=== PATIENT | female | born 2000 | race Caucasian/White ===

== ENCOUNTER 2020-12-18 11:38 | Day surgery (SDC) | payer OTHER ==
[~2020-12-18] VITALS: Ht 175.3 cm; Wt 103.9 kg
[2020-12-18] MEDS ORDERED: DOXYCYCLINE HYCLATE 100MG TABLET PO ONE (12:20)
[2020-12-18] MEDS ORDERED: ACETAMINOPHEN *IV* 1,000 MG IV ONE ×2 (12:20)
[2020-12-18] MEDS ORDERED: TYLE650T38 PO (12:22)
[2020-12-18] MEDS ORDERED: LIDOCAINE 2% 100MG/5ML SDV (FOR ANES.) As Ordered ONE (12:36)
[2020-12-18] MEDS ORDERED: propofoL 200 MG/20 ML VIAL As Ordered ONE (12:36)
[2020-12-18] MEDS ORDERED: MIDAZOLAM INJ 2MG/2ML VIAL (J2250 PER 1MG) As Ordered ONE (12:36)
[2020-12-18] MEDS ORDERED: fentaNYL 100 MCG/2 ML INJECTION (J3010) As Ordered ONE (12:36)
[2020-12-18] MEDS ORDERED: LR 1,000 ML IV ONE (12:40)
[2020-12-18] MEDS ORDERED: LIDOCAINE 1% SDV 30ML VIAL As Ordered ONE (12:41)
[2020-12-18 12:44] LABS: HEMATOCRIT 41.6 % (36.0-47.0); HEMOGLOBIN 14.5 g/dl (12.0-15.5); MEAN CORPUSCULAR HEMOGLOBIN 30.5 pg (27.0-33.0); MEAN CORPUSCULAR HGB CONC 34.9 g/dl (32.0-36.5); MEAN CORPUSCULAR VOLUME 87.6 fl (80.0-96.0); PLATELET COUNT, AUTOMATED 548 10^3/uL (150-450); RED BLOOD COUNT 4.75 10^6/uL (4.00-5.40); WHITE BLOOD COUNT 13.3 10^3/uL (4.0-10.0)
[2020-12-18] MEDS ORDERED: METHYLERGONOVINE MALEATE 0.2 MG/ML VIAL (J2210) As Ordered ONE (12:51)
[2020-12-18] MEDS ORDERED: SCOPOLAMINE 1MG TRANSDERMAL PATCH TOP ONE (13:00)
[2020-12-18] MEDS ORDERED: ACETAMINOPHEN 1000MG 100ML IV BTL (OFIRMEV) (J0131 PER 10MG) As Ordered ONE (13:02)
[2020-12-18] MEDS ORDERED: dexameTHASONE 4 MG/ML 1ML VIAL (J1100 PER 1MG) As Ordered ONE (13:02)
[2020-12-18] MEDS ORDERED: KETOROLAC 60MG 2ML VIAL As Ordered ONE (13:02)
[2020-12-18] MEDS ORDERED: ONDANSETRON 4MG/2ML VIAL As Ordered ONE ×2 (13:02→14:03)
[2020-12-18] MEDS ORDERED: SILVER NITRATE APPLICATOR As Ordered ONE (13:24)
--- NOTE | 2020-12-18 13:42 | ROOPDOC ---
[facility] Report Of Operation Report of Operation DATE OF PROCEDURE: 12/18/20 PREPROCEDURE DIAGNOSES: [early loss]. POSTPROCEDURE DIAGNOSES: [early loss]. PROCEDURE PERFORMED: [suction dilation & curettage]. SURGEON: [Anjel Vega DO ANESTHESIA: [MAC]. ESTIMATED BLOOD LOSS: Approximately [200] mL. COMPLICATIONS: [none]. REMARKS: [none]. FINDINGS: [Exam under anethesia: anteverted mobile uterus, Ultrasound gestational sac visible, no cardiac activity. SUction d&c performed without complication. Postprocedure ultrasound revealed thin endometrial s tripe.] SPECIMENS REMOVED: [products of conception] DESCRIPTION OF PROCEDURE: After obtaining informed consent, the patient was brought to the operating suite and prepped/draped in the usual manner. A timeout was called and the patient name, date of and procedure to be performed were verified. A sterile speculum was placed vaginally. A tenaculum was affixed to the anterior lip of the cervix. 10mL of 1% lidocaine was injected as a paracervical block. The cervix was serially dilated to 13Fr. The 7mm suction canulla was introduced and three passes were performed productive of tissue. This was followed by sharp curettage with good cry noted in 360 degrees. Ultrasound verification of the removal of the gestational sac. Then one additional suction curettage pass. The tenaculum was removed and hemostasis was obtained with pressure and silver nitrate. All instruments were removed from the vagina. The patient was taken to the recovery room in good condition. DO OTTO Katz BRADLEY J. DO Dec 18, 2020 13:42
--- NOTE | 2020-12-18 13:43 | POST-OPPD ---
Postoperative Procedure Note Date Of Procedure: Dec 18, 2020 DATE OF PROCEDURE: 12/18/20 PREPROCEDURE DIAGNOSES: [early loss]. POSTPROCEDURE DIAGNOSES: [early loss]. PROCEDURE PERFORMED: [suction dilation & curettage]. SURGEON: [Ghulam Eric]DO ANESTHESIA: [MAC]. ESTIMATED BLOOD LOSS: Approximately [200] mL. COMPLICATIONS: [none]. REMARKS: [none]. FINDINGS: [Exam under anethesia: anteverted mobile uterus, Ultrasound gestational sac visible, no cardiac activity. SUction d&c performed without complication. Postprocedure ultrasound revealed thin endometrial stripe.] SPECIMENS REMOVED: [products of conception] GHULAM ERIC DO Dec 18, 2020 13:43
[2020-12-18] MEDS ORDERED: LR 1,000 ML IV SCH (14:10)
[2020-12-18] MEDS ORDERED: fentaNYL 100 MCG/2 ML INJECTION (J3010) IV PRN (14:10)
[2020-12-18] MEDS ORDERED: ONDANSETRON 4MG/2ML VIAL IV PRN (14:10)
[2020-12-18] MEDS ORDERED: METOCLOPRAMIDE INJ 10MG/2ML VIAL (J2765 PER 1) IV PRN (14:10)
[2020-12-18] MEDS ORDERED: oxyCODONE 5MG TAB PO PRN (14:10)
[2020-12-18 16:25] VITALS: BP 115/63
== END 2020-12-18 16:52 | disposition home or self-care (01) ==
LOC: M SDC 11:38 → EDSTATUS 14:54 → M SDC 16:52
PROVIDERS: ATTEND Obstetrics & Gynecology
DX: O02.1 Missed abortion (principal); Z88.1 Allergy status to other antibiotic agents
CPT/HCPCS: 36415; 59820; 85027; 86850; 86900; 86901; 88305; J0131; J1100; J1885; J2250; J2405; J3010; U0002

== ENCOUNTER → 2021-08-17 | Outpatient (CLI) | payer OTHER ==
[~2021-08-17] MED LIST: TYLE650T38 PO
[2021-08-17 17:38] LABS: BASO # 0.1 10^3/uL (0.0-0.2); BASO % 0.5 % (0.0-1.0); EOS # 0.1 10^3/uL (0.0-0.5); EOS % 0.6 % (0.0-3.0); HEMATOCRIT 37.9 % (36.0-47.0); HEMOGLOBIN 13.1 g/dl (12.0-15.5); LYMPH % 20.9 % (24.0-44.0); MEAN CORPUSCULAR HEMOGLOBIN 31.1 pg (27.0-33.0); MEAN CORPUSCULAR HGB CONC 34.6 g/dl (32.0-36.5); MONO # 1.5 10^3/uL (0.0-0.8); MONO % 10.3 % (2.0-8.0); NEUTROPHILS # 9.5 10^3/uL (1.5-8.5); NEUTROPHILS % 67.4 % (36.0-66.0); PLATELET COUNT, AUTOMATED 471 10^3/uL (150-450); RED BLOOD COUNT 4.21 10^6/uL (4.00-5.40); WHITE BLOOD COUNT 14.2 10^3/uL (4.0-10.0)
[2021-08-17 17:49] LABS: INR 0.88; PROTHROMBIN TIME 12.3 SECONDS (12.7-14.5)
[2021-08-17 17:50] LABS: PARTIAL THROMBOPLASTIN TIME 26.6 SECONDS (25.9-37.0)
[2021-08-17 17:53] LABS: BILIRUBIN,DIRECT 0.1 MG/DL (0.0-0.2); BILIRUBIN,TOTAL 0.5 MG/DL (0.2-1.0); FERRITIN 16 NG/ML (8-252); IMMUNOGLOBULIN G 896 MG/DL (681-1648); IRON (FE) 111 UG/DL (50-170); PERCENT SATURATION 31.5 % (13.2-45.0); TOTAL IRON BINDING CAPACITY 352 UG/DL (250-450)
[2021-08-17 18:01] LABS: FOLATE > 24.0 NG/ML (>5.4); VITAMIN B12 LEVEL 368 PG/ML (247-911)
== END ==
LOC: M PLALAB 15:59
PROVIDERS: ATTEND Internal Medicine Hematology
DX: D58.0 Hereditary spherocytosis (principal)

== ENCOUNTER → 2021-09-15 | Outpatient (CLI) | payer OTHER | LOC: M LAB 14:16 | PROVIDERS: ATTEND Obstetrics & Gynecology | DX: O99.210 Obesity complicating pregnancy, unspecified trimester (principal) ==

== ENCOUNTER 2021-09-23 18:15 | Outpatient (CLI) | payer OTHER ==
[~2021-09-23] VITALS: Ht 175.3 cm; Wt 105.1 kg
[2021-09-23 18:30] VITALS: BP 129/78
[2021-09-23 18:40] VITALS: BP 129/78
[2021-09-23] MEDS ORDERED: PNVTAB4 PO (18:46)
[2021-09-23] MEDS ORDERED: MAGN200T PO (18:47)
[2021-09-23] MEDS ORDERED: ASPI81CH33 PO (18:49)
[2021-09-23] MEDS ORDERED: ACETAMINOPHEN 325 MG TAB PO ONE (19:00)
[2021-09-23] MEDS ORDERED: METOCLOPRAMIDE 10MG TAB PO ONE (19:45)
[2021-09-23] MEDS ORDERED: diphenhydrAMINE 25MG CAP PO ONE (19:45)
[2021-09-23 20:31] LABS: HEMATOCRIT 35.4 % (36.0-47.0); HEMOGLOBIN 12.2 g/dl (12.0-15.5); MEAN CORPUSCULAR HEMOGLOBIN 31.5 pg (27.0-33.0); MEAN CORPUSCULAR HGB CONC 34.5 g/dl (32.0-36.5); MEAN CORPUSCULAR VOLUME 91.5 fl (80.0-96.0); PLATELET COUNT, AUTOMATED 492 10^3/uL (150-450); RED BLOOD COUNT 3.87 10^6/uL (4.00-5.40); WHITE BLOOD COUNT 14.9 10^3/uL (4.0-10.0)
[2021-09-23 21:29] VITALS: BP 131/60
[2021-09-23] MEDS ORDERED: IBUPROFEN 800 MG TAB PO ONE (21:35)
== END 2021-09-23 22:30 | disposition home or self-care (01) ==
LOC: M LDO 18:15
PROVIDERS: ATTEND Obstetrics & Gynecology
DX: O26.892 Other specified pregnancy related conditions, second trimester (principal); Z3A.23 23 weeks gestation of pregnancy; R51.9 Headache, unspecified; O99.112 Other diseases of the blood and blood-forming organs and certain disorders involving the immune mechanism complicating pregnancy, second trimester; D72.829 Elevated white blood cell count, unspecified; Z87.59 Personal history of other complications of pregnancy, childbirth and the puerperium; O23.42 Unspecified infection of urinary tract in pregnancy, second trimester; N39.0 Urinary tract infection, site not specified; Z88.1 Allergy status to other antibiotic agents
CPT/HCPCS: 36415; 59025; 81001; 85027; 87086; G0378; G0463

== ENCOUNTER 2021-12-26 17:17 | Outpatient (CLI) | payer OTHER ==
[~2021-12-26] VITALS: Ht 53.3 cm; Wt 111.9 kg
[~2021-12-26 17:17] MED LIST changes: +ASPI81CH33 PO; +MAGN200T PO; +PNVTAB4 PO
[2021-12-26 17:56] VITALS: BP 152/65
[2021-12-26] MEDS ORDERED: TUMS500C PO (17:59)
[2021-12-26] MEDS ORDERED: HOME MED LIST COMPLETE! XX SCH (18:00)
[2021-12-26 18:19] LABS: HEMATOCRIT 34.4 % (36.0-47.0); HEMOGLOBIN 11.7 g/dl (12.0-15.5); MEAN CORPUSCULAR HEMOGLOBIN 30.2 pg (27.0-33.0); MEAN CORPUSCULAR VOLUME 88.7 fl (80.0-96.0); PLATELET COUNT, AUTOMATED 499 10^3/uL (150-450); RED BLOOD COUNT 3.88 10^6/uL (4.00-5.40); WHITE BLOOD COUNT 14.2 10^3/uL (4.0-10.0)
[2021-12-26 18:34] VITALS: BP 90/53
[2021-12-26 18:48] LABS: CREATININE,RANDOM URINE 64.5 MG/DL; TOTAL PROTEIN,RANDOM URINE 9.1 MG/DL (0.0-12.0)
[2021-12-26 18:50] LABS: ALBUMIN 2.7 GM/DL (3.2-5.2); ALT/SGPT 13 U/L (12-78); BILIRUBIN,TOTAL 0.4 MG/DL (0.2-1.0); BLOOD UREA NITROGEN 7 MG/DL (7-18); CALCIUM LEVEL 9.1 MG/DL (8.5-10.1); CARBON DIOXIDE LEVEL 21 MEQ/L (21-32); CHLORIDE LEVEL 108 MEQ/L (98-107); CREATININE FOR GFR 0.65 MG/DL (0.55-1.30); GLOMERULAR FILTRATION RATE > 60.0 (>60); GLUCOSE, FASTING 142 MG/DL (70-100); LDH LACTATE DEHYDROGENASE 120 U/L (84-246); SODIUM LEVEL 138 MEQ/L (136-145); TOTAL PROTEIN 6.2 GM/DL (6.4-8.2)
[2021-12-26 19:11] VITALS: BP 106/59
[2021-12-26 19:31] VITALS: BP 128/76
[2021-12-26] MEDS ORDERED: diphenhydrAMINE 25MG CAP PO ONE (20:00)
[2021-12-26] MEDS ORDERED: METOCLOPRAMIDE 10MG TAB PO ONE (20:00)
== END 2021-12-26 20:54 | disposition home or self-care (01) ==
LOC: M LDO 17:17
PROVIDERS: ATTEND Obstetrics & Gynecology
DX: O26.893 Other specified pregnancy related conditions, third trimester (principal); R51.9 Headache, unspecified; Z3A.36 36 weeks gestation of pregnancy; Z87.59 Personal history of other complications of pregnancy, childbirth and the puerperium; Z88.1 Allergy status to other antibiotic agents
CPT/HCPCS: 36415; 59025; 76815; 80053; 82570; 83615; 84156; 85027; G0463

== ENCOUNTER 2022-01-05 10:00 | Outpatient (CLI) | payer OTHER ==
[~2022-01-05] VITALS: Ht 175.3 cm; Wt 112.2 kg
[~2022-01-05 10:00] MED LIST changes: +TUMS500C PO
[2022-01-05 10:34] VITALS: BP 127/78
== END 2022-01-05 12:10 | disposition home or self-care (01) ==
LOC: M LDO 10:00
PROVIDERS: ATTEND Obstetrics & Gynecology
DX: O47.1 False labor at or after 37 completed weeks of gestation (principal); Z3A.38 38 weeks gestation of pregnancy; O24.410 Gestational diabetes mellitus in pregnancy, diet controlled; O99.513 Diseases of the respiratory system complicating pregnancy, third trimester; J45.909 Unspecified asthma, uncomplicated; Z87.59 Personal history of other complications of pregnancy, childbirth and the puerperium
CPT/HCPCS: 59025; 76815; G0463

== ENCOUNTER 2022-01-12 11:36 | Inpatient (IN) | payer OTHER ==
[~2022-01-12] VITALS: Ht 175.3 cm; Wt 113.0 kg
[2022-01-12] VITALS (19 sets, daily range): BP systolic 119–168; BP diastolic 66–103
[2022-01-12] MEDS ORDERED: LR 1,000 ML IV SCH (13:00)
[2022-01-12] MEDS ORDERED: METHYLERGONOVINE MALEATE 0.2 MG/ML VIAL (J2210) IM PRN (13:00)
[2022-01-12] MEDS ORDERED: LIDOCAINE 1% MDV 20ML VIAL INFIL PRN (13:00)
[2022-01-12] MEDS ORDERED: TRANEXAMIC ACID INJection 1,000 MG in NS 100 ML IV PRN (13:00)
[2022-01-12] MEDS ORDERED: OXYTOCIN DRIP 30 UNITS in IV 1 EA IV PRN (13:00)
[2022-01-12] MEDS ORDERED: CARBOPROST TROMETHAMINE 250 MCG/ML AMP IM PRN (13:00)
[2022-01-12] MEDS ORDERED: LACTATED RINGER'S 1000 ML IV PRN (13:00)
[2022-01-12 14:47] LABS: TOTAL PROTEIN,RANDOM URINE 28.8 MG/DL (0.0-12.0)
[2022-01-12 14:52] LABS: HEMATOCRIT 34.3 % (36.0-47.0); HEMOGLOBIN 11.5 g/dl (12.0-15.5); MEAN CORPUSCULAR HEMOGLOBIN 29.6 pg (27.0-33.0); MEAN CORPUSCULAR HGB CONC 33.5 g/dl (32.0-36.5); MEAN CORPUSCULAR VOLUME 88.2 fl (80.0-96.0); PLATELET COUNT, AUTOMATED 440 10^3/uL (150-450); RED BLOOD COUNT 3.89 10^6/uL (4.00-5.40); WHITE BLOOD COUNT 14.5 10^3/uL (4.0-10.0)
[2022-01-12 15:27] LABS: ALBUMIN 2.6 GM/DL (3.2-5.2); ALT/SGPT 12 U/L (12-78); BILIRUBIN,DIRECT 0.2 MG/DL (0.0-0.2); BILIRUBIN,TOTAL 0.6 MG/DL (0.2-1.0); GLUCOSE,RANDOM 80 MG/DL (LESS THAN 200); TOTAL PROTEIN 6.3 GM/DL (6.4-8.2)
[2022-01-12] MEDS: miSOPROStol 50MCG 1/2 TABLET PO SCH ×3 (15:47→23:50)
[2022-01-13] VITALS (53 sets, daily range): BP systolic 112–166; BP diastolic 59–105
[2022-01-13] MEDS: miSOPROStol 50MCG 1/2 TABLET PO SCH (04:09)
[2022-01-13] MEDS ORDERED: ACETAMINOPHEN TAB 650MG DOSE (2X325MG) PO ONE (06:20)
[2022-01-13] MEDS ORDERED: OXYTOCIN DRIP 30 UNITS in IV 1 EA IV SCH ×2 (08:55→18:25)
[2022-01-13] MEDS ORDERED: LR 500 ML IV PRN (09:40)
[2022-01-13] MEDS ORDERED: NALOXONE INJ 0.4MG/1ML VIAL (J2310 PER 1MG) IV PRN (09:40)
[2022-01-13] MEDS ORDERED: ePHEDrine SULFATE 25 MG/5 ML(5MG/ML) SYRINGE IVP PRN (09:40)
[2022-01-13] MEDS ORDERED: EPIDURAL/PCA KEYS XX PRN (09:40)
[2022-01-13] MEDS ORDERED: FENTANYL/ROPIVACAINE/NACL BAG 100 ML EPIDURAL SCH (09:40)
[2022-01-13] MEDS ORDERED: ONDANSETRON 4MG 2ML VIAL IV PRN (09:40)
[2022-01-13] MEDS ORDERED: diphenhydrAMINE 50MG/ML VIAL (J1200) IV PRN (09:40)
[2022-01-13] MEDS: LR 1,000 ML IV SCH ×2 (11:03→18:06)
[2022-01-13] MEDS ORDERED: RHOGAM 300 MCG (1500 IU) INJ (J2790) IM SCH (18:25)
[2022-01-13] MEDS ORDERED: METHYLERGONOVINE MALEATE 0.2 MG TAB PO PRN (18:25)
[2022-01-13] MEDS ORDERED: DOCUSATE SODIUM 100MG CAPSULE PO PRN (18:25)
[2022-01-13] MEDS ORDERED: DIBUCAINE 1% OINTMENT 30GM TOP PRN (18:25)
[2022-01-13] MEDS: IBUPROFEN 800 MG TAB PO PRN (19:40)
[2022-01-14] MEDS: ACETAMINOPHEN TAB 650MG DOSE (2X325MG) PO PRN ×2 (00:03→21:42)
[2022-01-14 06:48] VITALS: BP 123/72
[2022-01-14] MEDS: IBUPROFEN 800 MG TAB PO PRN ×2 (07:01→17:46)
[2022-01-14] MEDS: PRENATAL VITAMINS CHEWABLE TABLET PO SCH (08:19)
[2022-01-14 17:59] VITALS: BP 129/76
[2022-01-15] MEDS ORDERED: INFLUENZA QUADRIVALENT PF VACCINE 0.5ML SYRINGE IM.IMMUN ONE (04:35)
[2022-01-15] MEDS: IBUPROFEN 800 MG TAB PO PRN (05:50)
[2022-01-15 06:11] VITALS: BP 125/74
[2022-01-15] MEDS ORDERED: IBUP80TA PO (08:19)
[2022-01-15] MEDS: PRENATAL VITAMINS CHEWABLE TABLET PO SCH (08:27)
[2022-01-15] MEDS ORDERED: MEASLES,MUMPS,RUBELLA VACCINE INJ (MMR-II) (90707) SC.IMMUN ONE (09:00)
== END 2022-01-15 12:00 | disposition home or self-care (01) | DRG 807 ==
LOC: M LDI 11:36 → M OBS 01-13 20:18
PROVIDERS: ADMIT Registered Nurse; ATTEND Registered Nurse
PROC: 3E0P7GC Introduction of Other Therapeutic Substance into Female Reproductive, Via Natural or Artificial Opening (ICD-10-PCS; 2022-01-12)
PROC: 10E0XZZ Delivery of Products of Conception, External Approach (ICD-10-PCS; principal; 2022-01-13)
PROC: 0HQ9XZZ Repair Perineum Skin, External Approach (ICD-10-PCS; 2022-01-13)
DX: O24.420 Gestational diabetes mellitus in childbirth, diet controlled (principal); Z37.0 Single live birth; Z3A.39 39 weeks gestation of pregnancy; O69.81X0 Labor and delivery complicated by cord around neck, without compression, not applicable or unspecified; O70.0 First degree perineal laceration during delivery

== ENCOUNTER → 2022-02-04 | Outpatient (CLI) | payer OTHER ==
[~2022-02-04] MED LIST changes: +IBUP80TA PO
[2022-02-04 13:05] LABS: HEMATOCRIT 39.6 % (36.0-47.0); HEMOGLOBIN 13.3 g/dl (12.0-15.5); MEAN CORPUSCULAR HEMOGLOBIN 29.9 pg (27.0-33.0); MEAN CORPUSCULAR HGB CONC 33.6 g/dl (32.0-36.5); PLATELET COUNT, AUTOMATED 673 10^3/uL (150-450); RED BLOOD COUNT 4.45 10^6/uL (4.00-5.40); WHITE BLOOD COUNT 10.5 10^3/uL (4.0-10.0)
[2022-02-04 14:24] LABS: PERCENT SATURATION 7.6 % (13.2-45.0)
== END ==
LOC: M LAB 12:18
PROVIDERS: ATTEND Internal Medicine Hematology
DX: D58.0 Hereditary spherocytosis (principal)

== ENCOUNTER 2022-02-10 08:55 | Outpatient (CLI) | payer OTHER ==
[~2022-02-10] VITALS: Ht 175.3 cm; Wt 102.0 kg
[~2022-02-10 08:55] MED LIST changes: +ALBUTEROL SULFATE 2.5 MG/0.5 ML INH NEB SOLN INH PRN; +EPINEPHrine INJ 1 MG/ML 1ML AMP IM PRN; +FERRIC CARBOXYMALTOSE INJ 750 MG in NS 250 ML (>50kg) IV ONE; +NS 1,000 ML IV SCH; +diphenhydrAMINE 50MG/ML VIAL (J1200) IV PRN; +methylPREDNISolone 125MG 2ML VIAL IV PRN
[2022-02-10 09:05] VITALS: BP 127/70
[2022-02-10 11:15] VITALS: BP 136/68
== END 2022-02-10 11:15 | disposition home or self-care (01) ==
LOC: M INFU 08:55
PROVIDERS: ATTEND Internal Medicine Hematology
DX: D50.9 Iron deficiency anemia, unspecified (principal); Z88.1 Allergy status to other antibiotic agents
CPT/HCPCS: 96365; J1439

== ENCOUNTER 2022-02-17 09:25 | Outpatient (CLI) | payer OTHER ==
[~2022-02-17] VITALS: Ht 175.3 cm; Wt 102.0 kg
[2022-02-17 09:25] VITALS: BP 131/61
[~2022-02-17 09:25] MED LIST changes: -FERRIC CARBOXYMALTOSE INJ 750 MG in NS 250 ML (>50kg) IV ONE; -NS 1,000 ML IV SCH
[2022-02-17] MEDS ORDERED: NS 1,000 ML IV SCH (09:30)
[2022-02-17] MEDS ORDERED: FERRIC CARBOXYMALTOSE INJ 750 MG in NS 250 ML (>50kg) IV ONE ×3 (09:30)
[2022-02-17 10:50] VITALS: BP 117/64
== END 2022-02-17 10:55 | disposition home or self-care (01) ==
LOC: M INFU 09:25
PROVIDERS: ATTEND Internal Medicine Hematology
DX: D50.9 Iron deficiency anemia, unspecified (principal); Z88.1 Allergy status to other antibiotic agents
CPT/HCPCS: 96365; J1439

== ENCOUNTER → 2022-04-27 | Outpatient (CLI) | payer OTHER ==
[~2022-04-27] MED LIST changes: -ALBUTEROL SULFATE 2.5 MG/0.5 ML INH NEB SOLN INH PRN; -EPINEPHrine INJ 1 MG/ML 1ML AMP IM PRN; -diphenhydrAMINE 50MG/ML VIAL (J1200) IV PRN; -methylPREDNISolone 125MG 2ML VIAL IV PRN
== END ==
LOC: M LAB 08:44
PROVIDERS: ATTEND Advanced Practice Midwife
DX: O24.410 Gestational diabetes mellitus in pregnancy, diet controlled (principal); Z3A.00 Weeks of gestation of pregnancy not specified

== ENCOUNTER → 2022-05-03 | Outpatient (CLI) | payer OTHER ==
[2022-05-03 18:01] LABS: HEMATOCRIT 43.1 % (36.0-47.0); HEMOGLOBIN 14.6 g/dl (12.0-15.5); MEAN CORPUSCULAR HEMOGLOBIN 29.6 pg (27.0-33.0); MEAN CORPUSCULAR HGB CONC 33.9 g/dl (32.0-36.5); MEAN CORPUSCULAR VOLUME 87.2 fl (80.0-96.0); PLATELET COUNT, AUTOMATED 580 10^3/uL (150-450); RED BLOOD COUNT 4.94 10^6/uL (4.00-5.40); WHITE BLOOD COUNT 9.4 10^3/uL (4.0-10.0)
[2022-05-03 18:20] LABS: PERCENT SATURATION 45.3 % (13.2-45.0)
[2022-05-03 18:22] LABS: THYROID STIMULATING HORMONE 0.804 uIU/ML (0.55-4.78)
[2022-05-03 18:23] LABS: FREE T4 0.97 NG/DL (0.89-1.76)
== END ==
LOC: M PLALAB 14:48
PROVIDERS: ATTEND Internal Medicine Hematology
DX: D50.8 Other iron deficiency anemias (principal)

== ENCOUNTER → 2022-05-06 | Outpatient (CLI) | payer OTHER | LOC: M WHC 13:32 | PROVIDERS: ATTEND Advanced Practice Midwife | DX: R10.31 Right lower quadrant pain (principal); R93.89 Abnormal findings on diagnostic imaging of other specified body structures ==

== ENCOUNTER → 2022-05-10 | Outpatient (CLI) | payer OTHER | LOC: M WHC 08:28 | PROVIDERS: ATTEND Internal Medicine Hematology | DX: R10.11 Right upper quadrant pain (principal); R16.0 Hepatomegaly, not elsewhere classified; K76.89 Other specified diseases of liver ==

== ENCOUNTER → 2022-05-24 | Outpatient (CLI) | payer OTHER | LOC: M EKG 12:29 | PROVIDERS: ATTEND Internal Medicine Hematology | DX: R00.2 Palpitations (principal); R42 Dizziness and giddiness ==

== ENCOUNTER → 2022-08-26 | Outpatient (CLI) | payer OTHER ==
[2022-08-26 11:14] LABS: HEMOGLOBIN 13.9 g/dl (12.0-15.5); MEAN CORPUSCULAR HEMOGLOBIN 30.5 pg (27.0-33.0); MEAN CORPUSCULAR HGB CONC 33.9 g/dl (32.0-36.5); MEAN CORPUSCULAR VOLUME 90.1 fl (80.0-96.0); PLATELET COUNT, AUTOMATED 567 10^3/uL (150-450); RED BLOOD COUNT 4.55 10^6/uL (4.00-5.40); WHITE BLOOD COUNT 12.1 10^3/uL (4.0-10.0)
[2022-08-26 11:41] LABS: CORTISOL AM 32.7 UG/DL (4.3-22.4)
[2022-08-26 11:44] LABS: FERRITIN 97.2 NG/ML (7.3-270.7); THYROID STIMULATING HORMONE 1.698 uIU/ML (0.55-4.78)
== END ==
LOC: M PLALAB 07:38
PROVIDERS: ATTEND Internal Medicine Hematology
DX: E61.1 Iron deficiency (principal); R00.2 Palpitations

== ENCOUNTER → 2022-09-01 | Outpatient (REF) | payer OTHER | LOC: M SFHCPLAZ 13:53 | PROVIDERS: ATTEND Internal Medicine Hematology | DX: E27.0 Other adrenocortical overactivity (principal) ==

== ENCOUNTER 2022-10-21 17:34 | Inpatient (IN) | payer OTHER ==
[~2022-10-21] VITALS: Ht 175.3 cm; Wt 92.0 kg
[2022-10-21] MEDS ORDERED: VENL75TA2 PO (18:01)
[2022-10-21] MEDS ORDERED: TOPA100T12 PO (18:01)
[2022-10-21] MEDS ORDERED: KETOROLAC 30 MG/ML 1ML VIAL IV ONE (21:40)
[2022-10-21] MEDS ORDERED: ONDANSETRON 4MG 2ML VIAL IV ONE (22:00)
[2022-10-21 22:01] LABS: BASO # 0.2 10^3/uL (0.0-0.2); BASO % 1.5 % (0.0-1.0); EOS % 0.3 % (0.0-3.0); HEMATOCRIT 47.3 % (36.0-47.0); HEMOGLOBIN 16.3 g/dl (12.0-15.5); LYMPH # 5.6 10^3/uL (1.5-5.0); LYMPH % 50.8 % (24.0-44.0); MEAN CORPUSCULAR HEMOGLOBIN 30.5 pg (27.0-33.0); MEAN CORPUSCULAR HGB CONC 34.5 g/dl (32.0-36.5); MEAN CORPUSCULAR VOLUME 88.6 fl (80.0-96.0); MONO # 1.1 10^3/uL (0.0-0.8); MONO % 10.1 % (2.0-8.0); NEUTROPHILS # 4.1 10^3/uL (1.5-8.5); NEUTROPHILS % 37.2 % (36.0-66.0); PLATELET COUNT, AUTOMATED 451 10^3/uL (150-450); RED BLOOD COUNT 5.34 10^6/uL (4.00-5.40)
[2022-10-21 22:10] LABS: ERYTHROCYTE SEDIMENTATION RATE 1 mm/hr (0-20)
[2022-10-21] MEDS ORDERED: AMPICILLIN SOD/SULBACTAM SOD 3 GM in D5W MINI-BAG PLUS 100 ML IV ONE (23:30)
[2022-10-21] MEDS ORDERED: IBUP1TAB6 PO (23:59)
[2022-10-21] MEDS ORDERED: RIZA10TA58 PO (23:59)
[2022-10-21] MEDS ORDERED: VENL37TA PO (23:59)
[2022-10-22] MEDS ORDERED: HOME MED LIST COMPLETE! XX SCH
[2022-10-22 00:54] LABS: RSV AMPLIFICATION NEGATIVE (NEGATIVE)
[2022-10-22 02:23] VITALS: BP 127/81; TEMP 97.2; O2SAT 97
[2022-10-22] MEDS: ACETAMINOPHEN TAB 650MG DOSE (2X325MG) PO PRN ×2 (02:30→14:25)
[2022-10-22] MEDS: AMPICILLIN SOD/SULBACTAM SOD 3 GM in D5W MINI-BAG PLUS 100 ML IV SCH ×3 (06:08→18:27)
[2022-10-22 06:29] VITALS: BP 105/62; TEMP 97.5; O2SAT 97
[2022-10-22 06:40] LABS: HEMATOCRIT 43.2 % (36.0-47.0); HEMOGLOBIN 14.8 g/dl (12.0-15.5); MEAN CORPUSCULAR HEMOGLOBIN 30.2 pg (27.0-33.0); MEAN CORPUSCULAR HGB CONC 34.3 g/dl (32.0-36.5); MEAN CORPUSCULAR VOLUME 88.2 fl (80.0-96.0); PLATELET COUNT, AUTOMATED 445 10^3/uL (150-450); WHITE BLOOD COUNT 7.6 10^3/uL (4.0-10.0)
[2022-10-22 07:05] LABS: ALBUMIN 3.6 G/DL (3.2-5.2); ALKALINE PHOSPHATASE 126 U/L (46-116); ALT/SGPT 228 U/L (7.0-40); AST/SGOT 147 U/L (<34); BILIRUBIN,TOTAL 0.7 MG/DL (0.3-1.2); BLOOD UREA NITROGEN 12 MG/DL (9-23); CALCIUM LEVEL 9.8 MG/DL (8.5-10.1); CARBON DIOXIDE LEVEL 24 MMOL/L (20-31); CHLORIDE LEVEL 107 MMOL/L (98-107); CREATININE FOR GFR 0.63 MG/DL (0.55-1.30); GLOMERULAR FILTRATION RATE > 60.0 (>60); GLUCOSE, FASTING 136 MG/DL (60-100); POTASSIUM SERUM 4.1 MMOL/L (3.5-5.1); SODIUM LEVEL 139 MMOL/L (136-145); TOTAL PROTEIN 6.5 G/DL (5.7-8.2)
[2022-10-22] MEDS: ENOXAPARIN 40MG/0.4ML SYRINGE (J1650 PER 10MG) SC SCH (09:00)
[2022-10-22] MEDS: dexAMETHasone 20MG/5ML VIAL IV SCH ×2 (09:11→16:50)
[2022-10-22] MEDS ORDERED: MECLIZINE 25 MG TABLET PO PRN (10:00)
[2022-10-22] MEDS: TOPIRAMATE (TopAMAX) 100 MG TAB PO SCH (10:04)
[2022-10-22 10:40] LABS: PROCALCITONIN 0.09 ng/ml
[2022-10-22 10:43] LABS: CPK CREATINE PHOSPHOKINASE 51 U/L (34-145)
[2022-10-22 11:22] LABS: HEPATITIS B CORE ANTIBODY IGM NEGATIVE (NEGATIVE); HEPATITIS B SURFACE ANTIGEN NEGATIVE (NEGATIVE)
[2022-10-22 13:55] VITALS: BP 88/44; TEMP 98.2; O2SAT 99
[2022-10-22 14:18] VITALS: BP 100/60
[2022-10-22 16:20] LABS: WHITE BLOOD COUNT 14.3 10^3/uL (4.0-10.0)
[2022-10-22 16:21] LABS: HEMATOCRIT 41.9 % (36.0-47.0); HEMOGLOBIN 14.7 g/dl (12.0-15.5); MEAN CORPUSCULAR HEMOGLOBIN 30.8 pg (27.0-33.0); MEAN CORPUSCULAR HGB CONC 35.1 g/dl (32.0-36.5); MEAN CORPUSCULAR VOLUME 87.8 fl (80.0-96.0); PLATELET COUNT, AUTOMATED 453 10^3/uL (150-450); RED BLOOD COUNT 4.77 10^6/uL (4.00-5.40)
[2022-10-22 16:34] LABS: ATYPICAL LYMPH 13 % (0-5); LYMPHOCYTES 16 % (16-44); MONOCYTES 8 % (0-5); NEUTROPHILS 62 % (28-66); PLATELET ESTIMATE NORMAL (NORMAL); POIKILOCYTOSIS 1+
[2022-10-22 16:41] LABS: ALBUMIN 3.6 G/DL (3.2-5.2); ALKALINE PHOSPHATASE 124 U/L (46-116); ALT/SGPT 244 U/L (7.0-40); AST/SGOT 155 U/L (<34); BILIRUBIN,TOTAL 0.7 MG/DL (0.3-1.2); BLOOD UREA NITROGEN 10 MG/DL (9-23); CALCIUM LEVEL 8.8 MG/DL (8.5-10.1); CARBON DIOXIDE LEVEL 20 MMOL/L (20-31); CHLORIDE LEVEL 109 MMOL/L (98-107); CREATININE FOR GFR 0.64 MG/DL (0.55-1.30); GLOMERULAR FILTRATION RATE > 60.0 (>60); GLUCOSE, FASTING 110 MG/DL (60-100); SODIUM LEVEL 139 MMOL/L (136-145); TOTAL PROTEIN 6.7 G/DL (5.7-8.2)
[2022-10-22 20:05] VITALS: BP 93/47; TEMP 97.9; O2SAT 95
[2022-10-23] MEDS: AMPICILLIN SOD/SULBACTAM SOD 3 GM in D5W MINI-BAG PLUS 100 ML IV SCH ×2 (00:51→05:45)
[2022-10-23] MEDS: dexAMETHasone 20MG/5ML VIAL IV SCH ×2 (00:51→08:51)
[2022-10-23 06:11] VITALS: BP 118/70; TEMP 97.7; O2SAT 97
[2022-10-23 07:45] LABS: INR 0.97; PROTHROMBIN TIME 13.1 SECONDS (12.5-14.5)
[2022-10-23] MEDS: ENOXAPARIN 40MG/0.4ML SYRINGE (J1650 PER 10MG) SC SCH (08:51)
[2022-10-23] MEDS: TOPIRAMATE (TopAMAX) 100 MG TAB PO SCH (08:51)
[2022-10-23] MEDS ORDERED: MECL-86 PO (10:05)
[2022-10-23] MEDS ORDERED: CEPH500C PO (10:05)
== END 2022-10-23 13:05 | disposition home or self-care (01) | DRG 156 ==
LOC: M ED 17:34 → M ED INP 23:40 → M MS5PR 10-22 02:27
PROVIDERS: ADMIT Family Medicine; ATTEND Internal Medicine
DX: H60.12 Cellulitis of left external ear (principal); G43.909 Migraine, unspecified, not intractable, without status migrainosus; D58.0 Hereditary spherocytosis; F32.A Depression, unspecified; D72.829 Elevated white blood cell count, unspecified; D50.9 Iron deficiency anemia, unspecified; Z90.81 Acquired absence of spleen; Z79.899 Other long term (current) drug therapy; Z88.8 Allergy status to other drugs, medicaments and biological substances

== ENCOUNTER → 2022-10-31 | Outpatient (CLI) | payer OTHER ==
[~2022-10-31] MED LIST changes: +CEPH500C PO; +IBUP1TAB6 PO; +MECL-86 PO; +RIZA10TA58 PO; +TOPA100T12 PO; +VENL37TA PO; +VENL75TA2 PO
[2022-10-31 10:15] LABS: ALBUMIN 3.6 G/DL (3.2-5.2); ALKALINE PHOSPHATASE 104 U/L (46-116); ALT/SGPT 138 U/L (7.0-40); AST/SGOT 55 U/L (<34); BILIRUBIN,TOTAL 1.1 MG/DL (0.3-1.2); BLOOD UREA NITROGEN 10 MG/DL (9-23); CALCIUM LEVEL 9.6 MG/DL (8.5-10.1); CARBON DIOXIDE LEVEL 26 MMOL/L (20-31); CHLORIDE LEVEL 108 MMOL/L (98-107); CREATININE FOR GFR 0.69 MG/DL (0.55-1.30); GLOMERULAR FILTRATION RATE > 60.0 (>60); GLUCOSE, FASTING 88 MG/DL (60-100); POTASSIUM SERUM 4.2 MMOL/L (3.5-5.1); SODIUM LEVEL 141 MMOL/L (136-145); TOTAL PROTEIN 6.6 G/DL (5.7-8.2)
== END ==
LOC: M LAB 09:22
PROVIDERS: ATTEND Internal Medicine
DX: H60.12 Cellulitis of left external ear (principal)

== ENCOUNTER → 2022-11-08 | Outpatient (CLI) | payer OTHER ==
[2022-11-08 17:52] LABS: BASO # 0.1 10^3/uL (0.0-0.2); BASO % 1.3 % (0.0-1.0); EOS # 0.1 10^3/uL (0.0-0.5); EOS % 0.5 % (0.0-3.0); HEMATOCRIT 44.7 % (36.0-47.0); LYMPH # 4.4 10^3/uL (1.5-5.0); LYMPH % 45.6 % (24.0-44.0); MEAN CORPUSCULAR HEMOGLOBIN 30.2 pg (27.0-33.0); MEAN CORPUSCULAR HGB CONC 33.6 g/dl (32.0-36.5); MEAN CORPUSCULAR VOLUME 89.9 fl (80.0-96.0); MONO # 0.9 10^3/uL (0.0-0.8); NEUTROPHILS # 4.2 10^3/uL (1.5-8.5); NEUTROPHILS % 43.5 % (36.0-66.0); PLATELET COUNT, AUTOMATED 666 10^3/uL (150-450); RED BLOOD COUNT 4.97 10^6/uL (4.00-5.40); WHITE BLOOD COUNT 9.6 10^3/uL (4.0-10.0)
[2022-11-08 18:18] LABS: C REACTIVE PROTEIN QUANTITATIV < 0.40 MG/DL (<1.0)
[2022-11-08 18:19] LABS: IMMUNOGLOBULIN A 295.7 MG/DL (40-350); IMMUNOGLOBULIN G 1143 MG/DL (650-1600); IMMUNOGLOBULIN M 72.5 MG/DL (50-300)
[2022-11-08 18:20] LABS: ALKALINE PHOSPHATASE 90 U/L (46-116); ALT/SGPT 40 U/L (7.0-40); AST/SGOT 12 U/L (<34); BILIRUBIN,TOTAL 1.4 MG/DL (0.3-1.2); BLOOD UREA NITROGEN 10 MG/DL (9-23); CALCIUM LEVEL 9.4 MG/DL (8.5-10.1); CARBON DIOXIDE LEVEL 26 MMOL/L (20-31); CHLORIDE LEVEL 105 MMOL/L (98-107); CREATININE FOR GFR 0.76 MG/DL (0.55-1.30); GLOMERULAR FILTRATION RATE > 60.0 (>60); GLUCOSE, FASTING 80 MG/DL (60-100); POTASSIUM SERUM 4.4 MMOL/L (3.5-5.1); SODIUM LEVEL 141 MMOL/L (136-145); TOTAL PROTEIN 7.2 G/DL (5.7-8.2)
[2022-11-08 18:30] LABS: MONO REFLEX EBV VCA IgM POSITIVE (NEGATIVE)
[2022-11-08 18:31] LABS: MONO REFLEX EBV COMP POSITIVE (NEGATIVE)
[2022-11-10 06:30] LABS: CYTOMEGALOVIRUS IgG ANTIBODY <0.60 U/mL (0.00-0.59); CYTOMEGALOVIRUS IgM ANTIBODY <30.0 AU/mL (0.0-29.9)
== END ==
LOC: M LAB 16:13
PROVIDERS: ATTEND Internal Medicine Hematology
DX: H60.12 Cellulitis of left external ear (principal); D58.0 Hereditary spherocytosis; D72.820 Lymphocytosis (symptomatic)
CPT/HCPCS: 36415; 80053; 82784; 85025; 85379; 86140; 86308; 86644; 86645; 88300; G0463

== ENCOUNTER → 2022-11-22 | Outpatient (CLI) | payer OTHER ==
[2022-11-22 17:37] LABS: ALBUMIN 4.1 G/DL (3.2-5.2); BILIRUBIN,DIRECT 0.3 MG/DL (<0.4); BILIRUBIN,TOTAL 1.1 MG/DL (0.3-1.2)
== END ==
LOC: M LAB 16:12
PROVIDERS: ATTEND Internal Medicine Hematology
DX: B27.09 Gammaherpesviral mononucleosis with other complications (principal)

== ENCOUNTER → 2022-11-22 | Outpatient (CLI) | payer OTHER ==
[~2022-11-22] MED LIST changes: +LIDOCAINE 1% MDV 20ML VIAL As Ordered ONE
[2022-11-22 11:47] VITALS: TEMP 98
[2022-11-22 12:32] VITALS: BP 139/86; O2SAT 97
== END ==
LOC: M IRPRO 11:34
PROVIDERS: ATTEND Otolaryngology
DX: R59.9 Enlarged lymph nodes, unspecified (principal)

== ENCOUNTER → 2023-01-06 | Outpatient (CLI) | payer OTHER ==
[~2023-01-06] MED LIST changes: -LIDOCAINE 1% MDV 20ML VIAL As Ordered ONE
[2023-01-06 09:49] LABS: HEMATOCRIT 43.3 % (36.0-47.0); HEMOGLOBIN 14.9 g/dl (12.0-15.5); MEAN CORPUSCULAR HEMOGLOBIN 30.2 pg (27.0-33.0); MEAN CORPUSCULAR HGB CONC 34.4 g/dl (32.0-36.5); MEAN CORPUSCULAR VOLUME 87.8 fl (80.0-96.0); PLATELET COUNT, AUTOMATED 521 10^3/uL (150-450); RED BLOOD COUNT 4.93 10^6/uL (4.00-5.40); WHITE BLOOD COUNT 9.7 10^3/uL (4.0-10.0)
[2023-01-06 10:01] LABS: PROTHROMBIN TIME 12.9 SECONDS (12.5-14.5)
[2023-01-06 10:02] LABS: PARTIAL THROMBOPLASTIN TIME 24.2 SECONDS (24.8-34.2)
[2023-01-06 10:17] LABS: PERCENT SATURATION 49.7 % (13.2-45.0)
[2023-01-06 10:18] LABS: THYROID STIMULATING HORMONE 1.103 uIU/ML (0.55-4.78); TOTAL 25(OH) VITAMIN D 13.8 NG/ML (20.0-100.0)
[2023-01-06 10:19] LABS: FREE T4 0.87 NG/DL (0.89-1.76)
== END ==
LOC: M LAB 09:15
PROVIDERS: ATTEND Internal Medicine Hematology
DX: R53.82 Chronic fatigue, unspecified (principal)

== ENCOUNTER → 2023-05-09 | Outpatient (CLI) | payer OTHER ==
[2023-05-09 15:23] LABS: BASO # 0.1 10^3/uL (0.0-0.2); BASO % 0.7 % (0.0-1.0); EOS # 0.1 10^3/uL (0.0-0.5); EOS % 0.6 % (0.0-3.0); HEMATOCRIT 40.8 % (36.0-47.0); HEMOGLOBIN 14.2 g/dl (12.0-15.5); LYMPH # 4.3 10^3/uL (1.5-5.0); LYMPH % 26.7 % (24.0-44.0); MEAN CORPUSCULAR HEMOGLOBIN 30.1 pg (27.0-33.0); MEAN CORPUSCULAR HGB CONC 34.8 g/dl (32.0-36.5); MEAN CORPUSCULAR VOLUME 86.4 fl (80.0-96.0); MONO # 1.5 10^3/uL (0.0-0.8); MONO % 9.3 % (2.0-8.0); NEUTROPHILS # 10.1 10^3/uL (1.5-8.5); NEUTROPHILS % 62.5 % (36.0-66.0); PLATELET COUNT, AUTOMATED 526 10^3/uL (150-450); RED BLOOD COUNT 4.72 10^6/uL (4.00-5.40); WHITE BLOOD COUNT 16.1 10^3/uL (4.0-10.0)
[2023-05-09 15:45] LABS: LDH LACTATE DEHYDROGENASE 149 U/L (120-246)
[2023-05-09 15:46] LABS: ALBUMIN 3.8 G/DL (3.2-5.2); ALKALINE PHOSPHATASE 77 U/L (46-116); ALT/SGPT 20 U/L (7.0-40); AST/SGOT 16 U/L (<34); BILIRUBIN,TOTAL 0.6 MG/DL (0.3-1.2); BLOOD UREA NITROGEN 13 MG/DL (9-23); CALCIUM LEVEL 9.3 MG/DL (8.5-10.1); CARBON DIOXIDE LEVEL 28 MMOL/L (20-31); CHLORIDE LEVEL 105 MMOL/L (98-107); GLOMERULAR FILTRATION RATE > 60.0 (>60); GLUCOSE, FASTING 124 MG/DL (60-100); IRON (FE) 36 UG/DL (50-170); POTASSIUM SERUM 4.2 MMOL/L (3.5-5.1); SODIUM LEVEL 138 MMOL/L (136-145); TOTAL PROTEIN 6.9 G/DL (5.7-8.2)
[2023-05-09 15:47] LABS: IMMUNOGLOBULIN G 1330 MG/DL (650-1600)
== END ==
LOC: M LAB 14:44
PROVIDERS: ATTEND Internal Medicine Hematology
DX: R53.82 Chronic fatigue, unspecified (principal); Z90.81 Acquired absence of spleen; D58.0 Hereditary spherocytosis

== ENCOUNTER → 2023-05-23 | Outpatient (REF) | payer OTHER ==
[2023-05-23 13:05] LABS: ERYTHROCYTE SEDIMENTATION RATE 17 mm/hr (0-20)
[2023-05-24 14:42] LABS: BASO # 0.1 10^3/uL (0.0-0.2); BASO % 0.4 % (0.0-1.0); EOS # 0.1 10^3/uL (0.0-0.5); EOS % 0.5 % (0.0-3.0); HEMATOCRIT 44.1 % (36.0-47.0); HEMOGLOBIN 14.8 g/dl (12.0-15.5); LYMPH # 3.7 10^3/uL (1.5-5.0); LYMPH % 19.9 % (24.0-44.0); MEAN CORPUSCULAR HEMOGLOBIN 30.1 pg (27.0-33.0); MEAN CORPUSCULAR HGB CONC 33.6 g/dl (32.0-36.5); MEAN CORPUSCULAR VOLUME 89.8 fl (80.0-96.0); MONO # 1.7 10^3/uL (0.0-0.8); NEUTROPHILS # 12.9 10^3/uL (1.5-8.5); NEUTROPHILS % 69.8 % (36.0-66.0); PLATELET COUNT, AUTOMATED 546 10^3/uL (150-450); RED BLOOD COUNT 4.91 10^6/uL (4.00-5.40); WHITE BLOOD COUNT 18.5 10^3/uL (4.0-10.0)
== END ==
LOC: M LAB REF 12:07
PROVIDERS: ATTEND Physician Assistant Medical
DX: R50.9 Fever, unspecified (principal)

== ENCOUNTER 2023-05-25 14:08 | Outpatient (CLI) | payer OTHER ==
[~2023-05-25] VITALS: Ht 175.3 cm; Wt 97.7 kg
[~2023-05-25 14:08] MED LIST changes: +ALBUTEROL SULFATE 2.5MG/0.5ML INH NEB SOLN INH PRN; +EPINEPHrine INJ 1 MG/ML 1ML AMP IM PRN; +NS 1,000 ML IV SCH; +diphenhydrAMINE 50MG/ML VIAL IV PRN; +methylPREDNISolone 125MG 2ML VIAL IV PRN
[2023-05-25 14:25] VITALS: BP 153/76; O2SAT 98
[2023-05-25] MEDS: FERRIC CARBOXYMALTOSE INJ 750 MG in NS 250 ML (>50kg) IV ONE (14:30)
[2023-05-25 15:42] VITALS: BP 128/85; O2SAT 99
== END 2023-05-25 15:42 | disposition home or self-care (01) ==
LOC: M INFU 14:08
PROVIDERS: ATTEND Internal Medicine Hematology
DX: D50.8 Other iron deficiency anemias (principal); Z88.1 Allergy status to other antibiotic agents
CPT/HCPCS: 96365; J1439

== ENCOUNTER → 2023-10-16 | Outpatient (CLI) | payer OTHER ==
[~2023-10-16] MED LIST changes: -ALBUTEROL SULFATE 2.5MG/0.5ML INH NEB SOLN INH PRN; -EPINEPHrine INJ 1 MG/ML 1ML AMP IM PRN; -NS 1,000 ML IV SCH; -diphenhydrAMINE 50MG/ML VIAL IV PRN; -methylPREDNISolone 125MG 2ML VIAL IV PRN
[2023-10-16 11:46] LABS: BASO # 0.1 10^3/uL (0.0-0.2); BASO % 1.2 % (0.0-1.0); EOS # 0.1 10^3/uL (0.0-0.5); EOS % 1.2 % (0.0-3.0); HEMATOCRIT 41.9 % (36.0-47.0); HEMOGLOBIN 14.4 g/dl (12.0-15.5); LYMPH # 3.3 10^3/uL (1.5-5.0); MEAN CORPUSCULAR HEMOGLOBIN 30.5 pg (27.0-33.0); MEAN CORPUSCULAR HGB CONC 34.4 g/dl (32.0-36.5); MEAN CORPUSCULAR VOLUME 88.8 fl (80.0-96.0); MONO % 10.7 % (2.0-8.0); NEUTROPHILS # 5.1 10^3/uL (1.5-8.5); NEUTROPHILS % 52.6 % (36.0-66.0); PLATELET COUNT, AUTOMATED 457 10^3/uL (150-450); RED BLOOD COUNT 4.72 10^6/uL (4.00-5.40); WHITE BLOOD COUNT 9.7 10^3/uL (4.0-10.0)
[2023-10-16 12:21] LABS: BLOOD UREA NITROGEN 9 MG/DL (9-23); CALCIUM LEVEL 9.4 MG/DL (8.5-10.1); CARBON DIOXIDE LEVEL 25 MMOL/L (20-31); CHLORIDE LEVEL 108 MMOL/L (98-107); CREATININE FOR GFR 0.74 MG/DL (0.55-1.30); GLOMERULAR FILTRATION RATE > 60.0 (>60); GLUCOSE, FASTING 89 MG/DL (60-100); IMMUNOGLOBULIN A 282.6 MG/DL (40-350); IMMUNOGLOBULIN G 1171 MG/DL (650-1600); IRON (FE) 136 UG/DL (50-170); SODIUM LEVEL 141 MMOL/L (136-145)
[2023-10-16 12:22] LABS: FERRITIN 85.8 NG/ML (7.3-270.7); VITAMIN B12 LEVEL 709 PG/ML (211-911)
== END ==
LOC: M PLALAB 08:32
PROVIDERS: ATTEND Internal Medicine Hematology
DX: D58.0 Hereditary spherocytosis (principal)

== ENCOUNTER → 2023-12-27 | Outpatient (REF) | LOC: M EMP 14:27 | PROVIDERS: ATTEND Family Medicine | DX: Z02.89 Encounter for other administrative examinations (principal) ==

== ENCOUNTER 2024-01-06 02:47 | Emergency (ER) | payer OTHER ==
[~2024-01-06] VITALS: Ht 175.3 cm; Wt 93.7 kg
[2024-01-06 02:48] VITALS: BP 144/84; TEMP 98; O2SAT 98
[2024-01-06] MEDS ORDERED: ISOVUE-370 76% 100ML VIAL As Ordered ONE (03:54)
[2024-01-06 03:59] LABS: BASO # 0.1 10^3/uL (0.0-0.2); EOS # 0.1 10^3/uL (0.0-0.5); HEMATOCRIT 40.9 % (36.0-47.0); LYMPH % 38.1 % (24.0-44.0); MEAN CORPUSCULAR HGB CONC 34.2 g/dl (32.0-36.5); MEAN CORPUSCULAR VOLUME 87.6 fl (80.0-96.0); MONO # 0.8 10^3/uL (0.0-0.8); MONO % 7.8 % (2.0-8.0); NEUTROPHILS # 5.5 10^3/uL (1.5-8.5); NEUTROPHILS % 51.9 % (36.0-66.0); PLATELET COUNT, AUTOMATED 572 10^3/uL (150-450); RED BLOOD COUNT 4.67 10^6/uL (4.00-5.40); WHITE BLOOD COUNT 10.5 10^3/uL (4.0-10.0)
[2024-01-06 04:04] LABS: ERYTHROCYTE SEDIMENTATION RATE 4 mm/hr (0-20)
[2024-01-06 04:06] LABS: C REACTIVE PROTEIN QUANTITATIV < 0.40 MG/DL (<1.0)
[2024-01-06 04:07] LABS: BLOOD UREA NITROGEN 12 MG/DL (9-23); CALCIUM LEVEL 9.5 MG/DL (8.5-10.1); CARBON DIOXIDE LEVEL 24 MMOL/L (20-31); CHLORIDE LEVEL 106 MMOL/L (98-107); CREATININE FOR GFR 0.81 MG/DL (0.55-1.30); GLOMERULAR FILTRATION RATE > 60.0 (>60); GLUCOSE, FASTING 89 MG/DL (60-100); HCG, SERUM QUANTITATIVE < 2.6 MIU/ML (<4.2); POTASSIUM SERUM 4.3 MMOL/L (3.5-5.1); SODIUM LEVEL 137 MMOL/L (136-145)
[2024-01-06] MEDS: cefTRIAXone SOD 1 GM in D5W MINI-BAG PLUS 50 ML IV ONE (04:42)
[2024-01-06] MEDS ORDERED: CEPH500C PO (05:14)
== END 2024-01-06 05:24 | disposition home or self-care (01) ==
LOC: M ED 02:47
DX: L03.211 Cellulitis of face (principal); G43.909 Migraine, unspecified, not intractable, without status migrainosus; H81.4 Vertigo of central origin; Z88.1 Allergy status to other antibiotic agents; Z79.2 Long term (current) use of antibiotics; Z79.1 Long term (current) use of non-steroidal anti-inflammatories (NSAID); Z79.899 Other long term (current) drug therapy
CPT/HCPCS: 70487; 80047; 80048; 84702; 85025; 85652; 86140; 96374; 99283; J0696; Q9967

== ENCOUNTER → 2024-02-14 | Outpatient (CLI) | payer OTHER | LOC: M RAD 13:32 | PROVIDERS: ATTEND Physician Assistant | DX: N94.12 Deep dyspareunia (principal); N88.8 Other specified noninflammatory disorders of cervix uteri; Q51.3 Bicornate uterus ==

== ENCOUNTER → 2024-02-27 | Outpatient (CLI) | payer OTHER ==
[2024-02-27 18:18] LABS: BASO # 0.1 10^3/uL (0.0-0.2); BASO % 0.9 % (0.0-1.0); EOS # 0.1 10^3/uL (0.0-0.5); EOS % 0.8 % (0.0-3.0); HEMATOCRIT 43.3 % (36.0-47.0); HEMOGLOBIN 14.8 g/dl (12.0-15.5); LYMPH # 2.7 10^3/uL (1.5-5.0); LYMPH % 27.4 % (24.0-44.0); MEAN CORPUSCULAR HEMOGLOBIN 30.4 pg (27.0-33.0); MEAN CORPUSCULAR HGB CONC 34.2 g/dl (32.0-36.5); MEAN CORPUSCULAR VOLUME 88.9 fl (80.0-96.0); MONO # 0.9 10^3/uL (0.0-0.8); MONO % 9.5 % (2.0-8.0); NEUTROPHILS % 61.2 % (36.0-66.0); PLATELET COUNT, AUTOMATED 494 10^3/uL (150-450); RED BLOOD COUNT 4.87 10^6/uL (4.00-5.40); WHITE BLOOD COUNT 9.8 10^3/uL (4.0-10.0)
[2024-02-27 18:36] LABS: ERYTHROCYTE SEDIMENTATION RATE 2 mm/hr (0-20)
[2024-02-27 18:56] LABS: C REACTIVE PROTEIN QUANTITATIV < 0.40 MG/DL (<1.0); URIC ACID 4.8 MG/DL (3.1-7.8)
[2024-02-27 18:57] LABS: RHEUMATOID FACTOR QUANT 5.4 IU/ML (<14)
[2024-02-27 18:58] LABS: ALKALINE PHOSPHATASE 63 U/L (35-104); ALT/SGPT 15 U/L (7.0-40); AST/SGOT < 8 U/L (<34); BILIRUBIN,TOTAL 1.1 MG/DL (0.3-1.2); BLOOD UREA NITROGEN 12 MG/DL (9-23); CALCIUM LEVEL 10.1 MG/DL (8.5-10.1); CARBON DIOXIDE LEVEL 26 MMOL/L (20-31); CHLORIDE LEVEL 108 MMOL/L (98-107); CREATININE FOR GFR 0.72 MG/DL (0.55-1.30); GLOMERULAR FILTRATION RATE > 60.0 (>60); GLUCOSE, FASTING 88 MG/DL (60-100); POTASSIUM SERUM 4.5 MMOL/L (3.5-5.1); SODIUM LEVEL 141 MMOL/L (136-145); TOTAL PROTEIN 7.3 G/DL (5.7-8.2)
[2024-02-29 15:57] LABS: ANA SCREEN, IFA NEGATIVE (NEGATIVE)
[2024-02-29 17:46] LABS: ANGIOTENSIN 1 CONVERTING ENZYM 31 U/L (9-67)
[2024-03-01 20:12] LABS: CYCLIC CITRULLINATED PEPTIDE < 16 UNITS (<20)
[2024-03-05 23:53] LABS: HLA-B27 Negative (Negative)
== END ==
LOC: M LAB 16:05
PROVIDERS: ATTEND Physician Assistant
DX: H16.223 Keratoconjunctivitis sicca, not specified as Sjogren's, bilateral (principal); L71.9 Rosacea, unspecified; H15.011 Anterior scleritis, right eye; Z13.0 Encounter for screening for diseases of the blood and blood-forming organs and certain disorders involving the immune mechanism

== ENCOUNTER → 2024-04-18 | Outpatient (REF) | payer OTHER ==
[2024-04-18 18:41] LABS: PERCENT SATURATION 18.3 % (13.2-45.0)
== END ==
LOC: M LAB REF 16:12
PROVIDERS: ATTEND Nurse Practitioner Family
DX: D50.9 Iron deficiency anemia, unspecified (principal)

== ENCOUNTER 2024-06-03 12:19 | Inpatient (IN) | payer OTHER ==
[~2024-06-03] VITALS: Ht 175.3 cm; Wt 99.7 kg
[2024-06-03 13:31] LABS: APPEARANCE, URINE HAZY (CLEAR); BACTERIA, URINE AUTO 2+ (NEGATIVE); BILIRUBIN, URINE AUTO NEGATIVE (NEGATIVE); BLOOD, URINE BLOOD 3+ (NEGATIVE); COLOR, URINE YELLOW (YELLOW); GLUCOSE, URINE (UA) AUTO NEGATIVE (NEGATIVE); KETONE, URINE AUTO NEGATIVE (NEGATIVE); LEUKOCYTE ESTERASE, URINE AUTO TRACE (NEGATIVE); MUCUS, URINE SMALL (NEGATIVE); NITRITE, URINE AUTO NEGATIVE (NEGATIVE); PROTEIN, URINE AUTO 1+ mg/dL (NEGATIVE); RBC, URINE AUTO TNTC /HPF (0-3); SPECIFIC GRAVITY URINE AUTO 1.017 (1.002-1.035); SQUAMOUS EPITHELIAL CELL UR AU 1 /HPF (0-6); UROBILINOGEN, URINE AUTO 0.2 mg/dL (0.0-2.0); WBC, URINE AUTO 42 /HPF (0-3)
[2024-06-03 13:47] LABS: VENOUS BASE EXCESS -1.4 (-2.0-2.0); VENOUS HCO3 23.8 MMOL/L (23.0-27.0); VENOUS O2 SATURATION 66.2 % (60.0-80.0); VENOUS PARTIAL PRESSURE CO2 41.9 mmHg (38.0-50.0); VENOUS PARTIAL PRESSURE O2 32.8 mmHg (30.0-50.0); VENOUS PH 7.372 UNITS (7.330-7.430); VENOUS STANDARD HCO3 22.5 MMOL/L; VENOUS TOTAL CO2 25.1 MMOL/L (24.0-28.0)
[2024-06-03 13:52] LABS: HEMOGLOBIN 14.2 g/dl (12.0-15.5); MEAN CORPUSCULAR HEMOGLOBIN 31.2 pg (27.0-33.0); MEAN CORPUSCULAR HGB CONC 34.6 g/dl (32.0-36.5); MEAN CORPUSCULAR VOLUME 90.1 fl (80.0-96.0); PLATELET COUNT, AUTOMATED 502 10^3/uL (150-450); RED BLOOD COUNT 4.55 10^6/uL (4.00-5.40)
[2024-06-03 13:54] LABS: WHITE BLOOD COUNT 34.9 10^3/uL (4.0-10.0)
[2024-06-03 14:03] LABS: INR 0.91; PARTIAL THROMBOPLASTIN TIME 26.6 SECONDS (24.8-34.2); PROTHROMBIN TIME 12.6 SECONDS (12.5-14.5)
[2024-06-03 14:09] LABS: LYMPHOCYTES 16 % (16-44); MONOCYTES 5 % (0-5); NEUTROPHILS 69 % (28-66); PLATELET ESTIMATE INCREASED (NORMAL)
[2024-06-03 14:10] LABS: ALBUMIN 3.7 G/DL (3.2-5.2); ALKALINE PHOSPHATASE 75 U/L (35-104); ALT/SGPT 37 U/L (7.0-40); AMYLASE 59 U/L (30-118); AST/SGOT 28 U/L (<34); BILIRUBIN,DIRECT 0.5 MG/DL (<0.4); BILIRUBIN,TOTAL 1.7 MG/DL (0.3-1.2); BLOOD UREA NITROGEN 11 MG/DL (9-23); C REACTIVE PROTEIN QUANTITATIV 3.46 MG/DL (<1.0); CALCIUM LEVEL 9.1 MG/DL (8.5-10.1); CARBON DIOXIDE LEVEL 24 MMOL/L (20-31); CHLORIDE LEVEL 108 MMOL/L (98-107); CREATININE FOR GFR 0.66 MG/DL (0.55-1.30); GLOMERULAR FILTRATION RATE > 60.0 (>60); GLUCOSE, FASTING 92 MG/DL (60-100); POTASSIUM SERUM 4.8 MMOL/L (3.5-5.1); SODIUM LEVEL 141 MMOL/L (136-145); TOTAL PROTEIN 7.1 G/DL (5.7-8.2)
[2024-06-03 14:11] LABS: POIKILOCYTOSIS 1+
[2024-06-03 14:13] LABS: HCG, SERUM QUALITATIVE NEGATIVE (NEGATIVE)
[2024-06-03 14:18] LABS: PROCALCITONIN 0.06 ng/ml
[2024-06-03] MEDS: NS (Normal Saline) 0.9% 1,000 ML IV ONE ×2 (14:50→20:28)
[2024-06-03] MEDS: PIPERACILLIN/TAZOBACTAM SOD 4.5 GM in DEXTROSE 5% (D5W) ADV/MINI-BAG 50 ML IV ONE (14:50)
[2024-06-03] MEDS ORDERED: ISOVUE-370 76% 100ML VIAL As Ordered ONE (15:15)
[2024-06-03] MEDS: ONDANSETRON 4MG 2ML VIAL IV ONE (16:00)
[2024-06-03] MEDS ORDERED: NALOXONE INJ 0.4MG/1ML VIAL IV PRN (16:05)
[2024-06-03] MEDS ORDERED: SENOKOT S TAB PO PRN (16:05)
[2024-06-03] MEDS ORDERED: IBUPROFEN 400MG TAB PO PRN (16:05)
[2024-06-03] MEDS ORDERED: ACETAMINOPHEN 325 MG TAB PO PRN (16:05)
[2024-06-03] MEDS ORDERED: BISACODYL 5MG TAB PO PRN (16:05)
[2024-06-03] MEDS ORDERED: MOM 30ML SUSPENSION UDC PO PRN (16:05)
[2024-06-03] MEDS ORDERED: MIRALAX *UNIT DOSE* 17GM PACKET PO PRN (16:05)
[2024-06-03] MEDS ORDERED: MECLIZINE 25 MG TABLET PO PRN (16:10)
[2024-06-03] MEDS ORDERED: SUMAtriptan SUCCINATE 50MG TABLET PO PRN (16:10)
[2024-06-03 16:37] LABS: ERYTHROCYTE SEDIMENTATION RATE 4 mm/hr (0-20)
[2024-06-03] MEDS: MORPHINE 2 MG/ML 1ML VIAL IV PRN (17:13)
[2024-06-03] MEDS ORDERED: ACET-897 PO (17:21)
[2024-06-03] MEDS ORDERED: PROM50TA4 PO (17:22)
[2024-06-03] MEDS ORDERED: HOME MED LIST COMPLETE! XX SCH (17:25)
[2024-06-03] MEDS: LACTOBACILLUS ACIDOPHILUS CAP (BACID) PO SCH (18:00)
[2024-06-03] MEDS: MORPHINE 4 MG/ML 1ML VIAL IV PRN (18:41)
[2024-06-03] MEDS: VANCOMYCIN HCL 2,000 MG, VIAL MATE ADAPTER 1 EACH in NS 500 ML IV ONE (20:28)
[2024-06-03] MEDS: LR 1,000 ML IV ONE (20:35)
[2024-06-03] MEDS: KETOROLAC 30 MG/ML 1ML VIAL IV PRN (20:47)
[2024-06-03] MEDS: HEPARIN SOD (PORCINE) 5000UNITS/ML 1ML VIAL/SYRINGE SQ SCH (21:00)
[2024-06-03] MEDS ORDERED: diphenhydrAMINE 50MG/ML VIAL As Ordered ONE (21:20)
[2024-06-03] MEDS: PIPERACILLIN/TAZOBACTAM SOD 4.5 GM in DEXTROSE 5% (D5W) ADV/MINI-BAG 50 ML IV SCH (21:31)
[2024-06-03] MEDS: PERCOCET 5MG/325MG TAB PO PRN (21:38)
[2024-06-03] MEDS: diphenhydrAMINE 50MG/ML VIAL IV ONE (21:39)
[2024-06-03] MEDS: LR 1,000 ML IV SCH (22:50)
[2024-06-04] MEDS: PROMETHAZINE 25MG/ML 1ML VIAL IV PRN (01:48)
[2024-06-04] MEDS: VANCOMYCIN HCL 1,000 MG, VIAL MATE ADAPTER 1 EACH in NS 250 ML IV SCH (01:59)
[2024-06-04] MEDS ORDERED: VANCOMYCIN HCL 1 MG in IV FLUID PLACE HOLDER 1 EA IV SCH (06:00)
[2024-06-04 06:48] LABS: BASO # 0.1 10^3/uL (0.0-0.2); BASO % 0.9 % (0.0-1.0); EOS # 0.3 10^3/uL (0.0-0.5); EOS % 2.2 % (0.0-3.0); HEMATOCRIT 33.9 % (36.0-47.0); LYMPH # 3.6 10^3/uL (1.5-5.0); LYMPH % 27.6 % (24.0-44.0); MEAN CORPUSCULAR HEMOGLOBIN 31.5 pg (27.0-33.0); MEAN CORPUSCULAR HGB CONC 34.5 g/dl (32.0-36.5); MEAN CORPUSCULAR VOLUME 91.1 fl (80.0-96.0); MONO # 1.4 10^3/uL (0.0-0.8); MONO % 10.7 % (2.0-8.0); NEUTROPHILS # 7.7 10^3/uL (1.5-8.5); NEUTROPHILS % 58.3 % (36.0-66.0); PLATELET COUNT, AUTOMATED 432 10^3/uL (150-450); RED BLOOD COUNT 3.72 10^6/uL (4.00-5.40); WHITE BLOOD COUNT 13.2 10^3/uL (4.0-10.0)
[2024-06-04 06:52] LABS: HEMOGLOBIN 11.7 g/dl (12.0-15.5)
[2024-06-04 06:53] LABS: ALBUMIN 2.6 G/DL (3.2-5.2); ALKALINE PHOSPHATASE 63 U/L (35-104); ALT/SGPT 61 U/L (7.0-40); AST/SGOT 57 U/L (<34); BILIRUBIN,TOTAL 0.9 MG/DL (0.3-1.2); BLOOD UREA NITROGEN 8 MG/DL (9-23); CALCIUM LEVEL 8.1 MG/DL (8.5-10.1); CARBON DIOXIDE LEVEL 25 MMOL/L (20-31); CHLORIDE LEVEL 110 MMOL/L (98-107); CREATININE FOR GFR 0.71 MG/DL (0.55-1.30); GLOMERULAR FILTRATION RATE > 60.0 (>60); GLUCOSE, FASTING 110 MG/DL (60-100); MAGNESIUM LEVEL 1.9 MG/DL (1.8-2.4); POTASSIUM SERUM 4.1 MMOL/L (3.5-5.1); SODIUM LEVEL 143 MMOL/L (136-145); TOTAL PROTEIN 5.2 G/DL (5.7-8.2)
[2024-06-04] MEDS: LR 1,000 ML IV ONE (08:10)
[2024-06-04] MEDS: PERCOCET 5MG/325MG TAB PO ONE (08:11)
[2024-06-04] MEDS: TOPIRAMATE (TopAMAX) 100 MG TAB PO SCH (08:20)
[2024-06-04] MEDS: KETOROLAC 30 MG/ML 1ML VIAL IV ONE (08:20)
[2024-06-04] MEDS: MIDODRINE 5 MG TAB PO ONE (08:20)
[2024-06-04] MEDS: VANCOMYCIN HCL 1,250 MG, VIAL MATE ADAPTER 1 EACH in NS 250 ML IV SCH (10:12)
[2024-06-04] MEDS: HYDROMORPHONE HCL 0.5 MG/ 0.5 ML SYRINGE IV PRN (11:40)
[2024-06-04] MEDS: LR 1,000 ML IV SCH (12:27)
[2024-06-04] MEDS: PERCOCET 5MG/325MG TAB PO SCH (15:40)
[2024-06-04] MEDS: PROMETHAZINE 25MG/ML 1ML VIAL IV SCH (15:44)
[2024-06-04 18:14] VITALS: BP 106/58; TEMP 98.4; O2SAT 98
[2024-06-04] MEDS: KETOROLAC 30 MG/ML 1ML VIAL IV SCH (18:24)
[2024-06-04 19:49] VITALS: BP 101/55; TEMP 97.8; O2SAT 97
[2024-06-04 23:48] VITALS: BP 102/58; TEMP 97.8; O2SAT 96
[2024-06-05 04:14] VITALS: BP 91/51; TEMP 97; O2SAT 97
[2024-06-05 05:46] LABS: BASO # 0.1 10^3/uL (0.0-0.2); EOS # 0.4 10^3/uL (0.0-0.5); HEMOGLOBIN 12.3 g/dl (12.0-15.5); LYMPH # 3.8 10^3/uL (1.5-5.0); LYMPH % 44.2 % (24.0-44.0); MEAN CORPUSCULAR HEMOGLOBIN 30.5 pg (27.0-33.0); MEAN CORPUSCULAR HGB CONC 33.2 g/dl (32.0-36.5); MEAN CORPUSCULAR VOLUME 91.8 fl (80.0-96.0); MONO # 1.1 10^3/uL (0.0-0.8); MONO % 12.6 % (2.0-8.0); NEUTROPHILS # 3.3 10^3/uL (1.5-8.5); PLATELET COUNT, AUTOMATED 455 10^3/uL (150-450); RED BLOOD COUNT 4.03 10^6/uL (4.00-5.40); WHITE BLOOD COUNT 8.7 10^3/uL (4.0-10.0)
[2024-06-05 06:10] LABS: ALBUMIN 2.8 G/DL (3.2-5.2); ALKALINE PHOSPHATASE 59 U/L (35-104); ALT/SGPT 56 U/L (7.0-40); AST/SGOT 29 U/L (<34); BILIRUBIN,TOTAL 0.9 MG/DL (0.3-1.2); BLOOD UREA NITROGEN 9 MG/DL (9-23); CALCIUM LEVEL 8.8 MG/DL (8.5-10.1); CARBON DIOXIDE LEVEL 24 MMOL/L (20-31); CHLORIDE LEVEL 109 MMOL/L (98-107); CREATININE FOR GFR 0.84 MG/DL (0.55-1.30); GLOMERULAR FILTRATION RATE > 60.0 (>60); GLUCOSE, FASTING 99 MG/DL (60-100); POTASSIUM SERUM 4.2 MMOL/L (3.5-5.1); SODIUM LEVEL 142 MMOL/L (136-145); TOTAL PROTEIN 5.6 G/DL (5.7-8.2)
[2024-06-05 07:48] VITALS: BP 102/56; TEMP 98.5; O2SAT 96
[2024-06-05] MEDS: cefTRIAXone SOD 1 GM in DEXTROSE 5% (D5W) ADV/MINI-BAG 50 ML IV SCH (08:42)
[2024-06-05] MEDS: PERCOCET 5MG/325MG TAB PO ONE (09:00)
[2024-06-05] MEDS: MIDODRINE 5 MG TAB PO ONE (09:16)
[2024-06-05] MEDS: PHENAZOPYRIDINE 100 MG TAB PO SCH (10:52)
[2024-06-05 12:10] VITALS: BP 102/51; TEMP 98.8; O2SAT 98
[2024-06-05] MEDS: PROMETHAZINE 25MG/ML 1ML VIAL IV SCH (13:16)
[2024-06-05] MEDS ORDERED: PERCOCET 5MG/325MG TAB PO ONE (17:00)
[2024-06-05 18:00] VITALS: BP 111/67
[2024-06-05] MEDS: PERCOCET 5MG/325MG TAB PO SCH (18:59)
[2024-06-05 19:17] VITALS: BP 118/69; TEMP 98.5; O2SAT 98
[2024-06-05 20:04] VITALS: BP 114/74; TEMP 98; O2SAT 97
[2024-06-06 04:00] VITALS: BP 100/54; TEMP 97.4; O2SAT 96
[2024-06-06 07:52] LABS: BASO # 0.1 10^3/uL (0.0-0.2); BASO % 1.1 % (0.0-1.0); EOS # 0.3 10^3/uL (0.0-0.5); EOS % 3.3 % (0.0-3.0); HEMATOCRIT 37.5 % (36.0-47.0); HEMOGLOBIN 12.7 g/dl (12.0-15.5); LYMPH % 42.7 % (24.0-44.0); MEAN CORPUSCULAR HEMOGLOBIN 30.5 pg (27.0-33.0); MEAN CORPUSCULAR HGB CONC 33.9 g/dl (32.0-36.5); MEAN CORPUSCULAR VOLUME 90.1 fl (80.0-96.0); MONO % 10.9 % (2.0-8.0); NEUTROPHILS # 3.9 10^3/uL (1.5-8.5); NEUTROPHILS % 41.7 % (36.0-66.0); PLATELET COUNT, AUTOMATED 494 10^3/uL (150-450); RED BLOOD COUNT 4.16 10^6/uL (4.00-5.40); WHITE BLOOD COUNT 9.4 10^3/uL (4.0-10.0)
[2024-06-06] MEDS ORDERED: LEVO1TAB40 PO (07:52)
[2024-06-06] MEDS ORDERED: ONDA-282 PO (07:57)
[2024-06-06] MEDS ORDERED: PYRI1TAB5 PO (07:57)
[2024-06-06] MEDS ORDERED: PROC25SU27 PR (07:57)
[2024-06-06 08:21] LABS: ALKALINE PHOSPHATASE 61 U/L (35-104); ALT/SGPT 45 U/L (7.0-40); AST/SGOT 17 U/L (<34); BILIRUBIN,TOTAL 0.5 MG/DL (0.3-1.2); BLOOD UREA NITROGEN 14 MG/DL (9-23); CALCIUM LEVEL 8.9 MG/DL (8.5-10.1); CARBON DIOXIDE LEVEL 25 MMOL/L (20-31); CHLORIDE LEVEL 109 MMOL/L (98-107); GLOMERULAR FILTRATION RATE > 60.0 (>60); GLUCOSE, FASTING 100 MG/DL (60-100); POTASSIUM SERUM 4.2 MMOL/L (3.5-5.1); SODIUM LEVEL 142 MMOL/L (136-145)
[2024-06-06] MEDS ORDERED: PROMETHAZINE 25MG/ML 1ML VIAL IV PRN ×2 (12:00→15:01)
== END 2024-06-06 12:15 | disposition home or self-care (01) | DRG 720 ==
LOC: M ED 12:19 → M ED INP 15:47 → M PCU 06-04 18:07 → M MS4PR 06-05 19:51
PROVIDERS: ADMIT General Practice; ATTEND General Practice
PROC: 05HN33Z Insertion of Infusion Device into Left Internal Jugular Vein, Percutaneous Approach (ICD-10-PCS; principal; 2024-06-03)
PROC: 05HM33Z Insertion of Infusion Device into Right Internal Jugular Vein, Percutaneous Approach (ICD-10-PCS; 2024-06-03)
DX: A41.9 Sepsis, unspecified organism (principal); D84.9 Immunodeficiency, unspecified; D50.9 Iron deficiency anemia, unspecified; F17.290 Nicotine dependence, other tobacco product, uncomplicated; N10 Acute pyelonephritis; E66.9 Obesity, unspecified; B96.20 Unspecified Escherichia coli [E. coli] as the cause of diseases classified elsewhere; D58.0 Hereditary spherocytosis; Z79.899 Other long term (current) drug therapy; Z88.1 Allergy status to other antibiotic agents; Z90.49 Acquired absence of other specified parts of digestive tract; Z68.31 Body mass index [BMI] 31.0-31.9, adult; K59.00 Constipation, unspecified; Z90.81 Acquired absence of spleen; T82.528A Displacement of other cardiac and vascular devices and implants, initial encounter

== ENCOUNTER 2024-06-23 12:41 | Inpatient (IN) | payer OTHER ==
[2024-06-23] VITALS (11 sets, daily range): BP systolic 91–118; BP diastolic 51–59; TEMP 99.5; O2SAT 95
[~2024-06-23] VITALS: Ht 175.3 cm; Wt 100.5 kg
[~2024-06-23 12:41] MED LIST changes: -AMOX875T2 PO; -ETON68IM SC
[2024-06-23 13:30] LABS: VENOUS BASE EXCESS -1.4 (-2.0-2.0); VENOUS O2 SATURATION 64.1 % (60.0-80.0); VENOUS PARTIAL PRESSURE O2 30.8 mmHg (30.0-50.0); VENOUS PH 7.365 UNITS (7.330-7.430); VENOUS STANDARD HCO3 22.5 MMOL/L; VENOUS TOTAL CO2 25.3 MMOL/L (24.0-28.0)
[2024-06-23 13:37] LABS: BASO # 0.2 10^3/uL (0.0-0.2); BASO % 0.5 % (0.0-1.0); HEMOGLOBIN 14.1 g/dl (12.0-15.5); LYMPH # 1.2 10^3/uL (1.5-5.0); LYMPH % 3.7 % (24.0-44.0); MEAN CORPUSCULAR HGB CONC 35.3 g/dl (32.0-36.5); MEAN CORPUSCULAR VOLUME 87.9 fl (80.0-96.0); MONO # 1.4 10^3/uL (0.0-0.8); MONO % 4.5 % (2.0-8.0); NEUTROPHILS # 28.2 10^3/uL (1.5-8.5); NEUTROPHILS % 90.8 % (36.0-66.0); PLATELET COUNT, AUTOMATED 506 10^3/uL (150-450); RED BLOOD COUNT 4.55 10^6/uL (4.00-5.40)
[2024-06-23 13:39] LABS: WHITE BLOOD COUNT 31.1 10^3/uL (4.0-10.0)
[2024-06-23 13:53] LABS: LIPASE 34 U/L (12-53)
[2024-06-23 13:56] LABS: ALBUMIN 4.2 G/DL (3.2-5.2); ALKALINE PHOSPHATASE 72 U/L (35-104); ALT/SGPT 14 U/L (7.0-40); AST/SGOT 14 U/L (<34); BILIRUBIN,DIRECT 0.7 MG/DL (<0.4); BILIRUBIN,TOTAL 2.2 MG/DL (0.3-1.2); BLOOD UREA NITROGEN 13 MG/DL (9-23); CALCIUM LEVEL 9.6 MG/DL (8.5-10.1); CARBON DIOXIDE LEVEL 24 MMOL/L (20-31); CHLORIDE LEVEL 104 MMOL/L (98-107); CREATININE FOR GFR 0.75 MG/DL (0.55-1.30); GLOMERULAR FILTRATION RATE > 60.0 (>60); GLUCOSE, FASTING 112 MG/DL (60-100); POTASSIUM SERUM 4.1 MMOL/L (3.5-5.1); SODIUM LEVEL 138 MMOL/L (136-145); TOTAL PROTEIN 7.3 G/DL (5.7-8.2)
[2024-06-23 13:58] LABS: HCG, SERUM QUALITATIVE NEGATIVE (NEGATIVE)
[2024-06-23 14:07] LABS: PROCALCITONIN 0.04 ng/ml
[2024-06-23] MEDS: NS 0.9% IV ONE (14:17)
[2024-06-23] MEDS: [UNRECOGNIZED DRUG - OTHER] IV ONE (14:17)
[2024-06-23] MEDS: cefTRIAXone SOD 2 GM in DEXTROSE 5% (D5W) ADV/MINI-BAG 50 ML IV ONE (14:17)
[2024-06-23] MEDS: diphenhydrAMINE 50MG/ML VIAL IV STA (16:19)
[2024-06-23] MEDS: VANCOMYCIN HCL 2,000 MG, VIAL MATE ADAPTER 1 EACH in NS 500 ML IV ONE (16:20)
[2024-06-23] MEDS ORDERED: MAALOX 30 ML SUSP *UDC PO PRN (16:30)
[2024-06-23] MEDS ORDERED: VANCOMYCIN HCL 1,000 MG, VIAL MATE ADAPTER 1 EACH in NS 250 ML IV SCH (16:30)
[2024-06-23] MEDS ORDERED: ISOVUE-370 76% 100ML VIAL As Ordered ONE (16:45)
[2024-06-23] MEDS ORDERED: PIPERACILLIN/TAZOBACTAM SOD 3.375 GM in DEXTROSE 5% (D5W) ADV/MINI-BAG 50 ML IV SCH (17:00)
[2024-06-23 17:02] LABS: KETONE, URINE AUTO RFX NEGATIVE (NEGATIVE); LEUKOCYTE ESTERASE UR AUTO RFX NEGATIVE (NEGATIVE); MUCUS, URINE RFX SMALL (NEGATIVE); NITRITE, URINE AUTO RFX NEGATIVE (NEGATIVE); RBC, URINE AUTO RFX 4 /HPF (0-3); SQUAM EPITHELIAL CELL UR AURFX 3 /HPF (0-6); WBC, URINE AUTO RFX 0 /HPF (0-3)
[2024-06-23] MEDS: ACETAMINOPHEN 325 MG TAB PO PRN (17:18)
[2024-06-23 17:30] LABS: C REACTIVE PROTEIN QUANTITATIV 0.77 MG/DL (<1.0); IRON (FE) 28 UG/DL (50-170); TOTAL IRON BINDING CAPACITY 312 UG/DL (250-425)
[2024-06-23 17:33] LABS: FOLATE 8.2 NG/ML (>5.4)
[2024-06-23] MEDS: KETOROLAC 30 MG/ML 1ML VIAL IV ONE (17:35)
[2024-06-23 17:37] LABS: VITAMIN B12 LEVEL 708 PG/ML (211-911)
[2024-06-23] MEDS: NS (Normal Saline) 0.9% 1,000 ML IV ONE (17:40)
[2024-06-23] MEDS: ONDANSETRON 4MG 2ML VIAL IV PRN (17:40)
[2024-06-23] MEDS ORDERED: VASOPRESSIN IN 0.9 % NACL 20 UNIT in IV 1 EA IV SCH (17:55)
[2024-06-23] MEDS: NOREPINEPHRINE 4MG IN D5 250ML 4 MG in IV 1 EA IV SCH (18:13)
[2024-06-23] MEDS: HYDROCORTISONE 100MG/2ML VIAL IV SCH (18:18)
[2024-06-23] MEDS ORDERED: LIDOCAINE 1% MDV 20ML VIAL As Ordered ONE (18:44)
[2024-06-23] MEDS: CEFEPIME HCL 2 GM in DEXTROSE 5% (D5W) ADV/MINI-BAG 50 ML IV SCH (19:58)
[2024-06-23] MEDS: NS (Normal Saline) 0.9% 1,000 ML IV SCH (19:58)
[2024-06-23] MEDS: MORPHINE 2 MG/ML 1ML VIAL IV PRN (19:58)
[2024-06-23] MEDS: metroNIDAZOLE 500 MG in IV 1 EA IV SCH (20:41)
[2024-06-23] MEDS: VASOPRESSIN IN 0.9 % NACL 20 UNIT in IV 1 EA IV SCH (20:46)
[2024-06-23] MEDS ORDERED: ONDA-282 PO (22:43)
[2024-06-23] MEDS ORDERED: AMOX875T2 PO (22:46)
[2024-06-23] MEDS ORDERED: ETON68IM SC (22:46)
[2024-06-23] MEDS ORDERED: HOME MED LIST COMPLETE! XX SCH (22:50)
[2024-06-23] MEDS: diphenhydrAMINE 50MG/ML VIAL IV PRN (23:39)
[2024-06-24] VITALS (12 sets, daily range): BP systolic 91–123; BP diastolic 52–74; TEMP 96.5–100.6; O2SAT 95–97
[2024-06-24] MEDS: VANCOMYCIN HCL 1,250 MG, VIAL MATE ADAPTER 1 EACH in NS 250 ML IV SCH (00:02)
[2024-06-24] MEDS: IBUPROFEN 400MG TAB PO ONE (02:32)
[2024-06-24 06:57] LABS: BASO # 0.1 10^3/uL (0.0-0.2); BASO % 0.6 % (0.0-1.0); HEMATOCRIT 35.6 % (36.0-47.0); MEAN CORPUSCULAR HEMOGLOBIN 30.4 pg (27.0-33.0); MEAN CORPUSCULAR HGB CONC 33.7 g/dl (32.0-36.5); MEAN CORPUSCULAR VOLUME 90.1 fl (80.0-96.0); MONO # 0.6 10^3/uL (0.0-0.8); MONO % 2.6 % (2.0-8.0); NEUTROPHILS # 21.9 10^3/uL (1.5-8.5); NEUTROPHILS % 92.3 % (36.0-66.0); PLATELET COUNT, AUTOMATED 422 10^3/uL (150-450); RED BLOOD COUNT 3.95 10^6/uL (4.00-5.40); WHITE BLOOD COUNT 23.7 10^3/uL (4.0-10.0)
[2024-06-24 07:25] LABS: C REACTIVE PROTEIN QUANTITATIV 8.23 MG/DL (<1.0)
[2024-06-24 07:42] LABS: ALKALINE PHOSPHATASE 57 U/L (35-104); ALT/SGPT 23 U/L (7.0-40); AST/SGOT 25 U/L (<34); BILIRUBIN,TOTAL 0.9 MG/DL (0.3-1.2); BLOOD UREA NITROGEN 7 MG/DL (9-23); CALCIUM LEVEL 8.2 MG/DL (8.5-10.1); CARBON DIOXIDE LEVEL 22 MMOL/L (20-31); CHLORIDE LEVEL 112 MMOL/L (98-107); CREATININE FOR GFR 0.62 MG/DL (0.55-1.30); GLOMERULAR FILTRATION RATE > 60.0 (>60); GLUCOSE, FASTING 134 MG/DL (60-100); POTASSIUM SERUM 3.8 MMOL/L (3.5-5.1); SODIUM LEVEL 143 MMOL/L (136-145); TOTAL PROTEIN 5.7 G/DL (5.7-8.2)
[2024-06-24] MEDS: ENOXAPARIN 40MG/0.4ML SYRINGE (J1650 PER 10MG) SC SCH (09:30)
[2024-06-24] MEDS: PANTOPRAZOLE 40MG VIAL IV SCH (09:30)
[2024-06-24 09:36] LABS: PROCALCITONIN 0.09 ng/ml
[2024-06-24 17:13] LABS: APPEARANCE, CSF CLEAR (CLEAR); COLOR, CSF COLORLESS (COLORLESS); CSF TUBE# CELL CNT TUBE 1
[2024-06-24] MEDS ORDERED: PROMETHAZINE 25 MG TAB PO PRN (17:15)
[2024-06-24 17:16] LABS: APPEARANCE, CSF CLEAR (CLEAR); COLOR, CSF COLORLESS (COLORLESS); CSF TUBE# CELL CNT TUBE 4
[2024-06-24] MEDS: FIORICET TAB PO PRN (17:30)
[2024-06-24 17:39] LABS: CSF TUBE# TP TUBE 2; TOTAL PROTEIN,CSF 21.3 MG/DL (15-45)
[2024-06-24 17:42] LABS: CSF TUBE# GLU TUBE 2
[2024-06-24 19:07] LABS: IMMUNOGLOBULIN A 232.1 MG/DL (40-350); IMMUNOGLOBULIN G 870 MG/DL (650-1600); IMMUNOGLOBULIN M 32.7 MG/DL (50-300)
[2024-06-24] MEDS: IBUPROFEN 600MG TAB PO PRN (20:54)
[2024-06-25 03:02] VITALS: BP 126/73; TEMP 98; O2SAT 97
[2024-06-25 05:16] LABS: BASO # 0.1 10^3/uL (0.0-0.2); BASO % 0.8 % (0.0-1.0); EOS # 0.2 10^3/uL (0.0-0.5); EOS % 1.4 % (0.0-3.0); HEMOGLOBIN 12.3 g/dl (12.0-15.5); LYMPH # 3.5 10^3/uL (1.5-5.0); LYMPH % 27.8 % (24.0-44.0); MEAN CORPUSCULAR HEMOGLOBIN 30.8 pg (27.0-33.0); MEAN CORPUSCULAR HGB CONC 34.2 g/dl (32.0-36.5); MEAN CORPUSCULAR VOLUME 90.2 fl (80.0-96.0); MONO % 16.3 % (2.0-8.0); NEUTROPHILS # 6.7 10^3/uL (1.5-8.5); NEUTROPHILS % 53.5 % (36.0-66.0); RED BLOOD COUNT 3.99 10^6/uL (4.00-5.40); WHITE BLOOD COUNT 12.5 10^3/uL (4.0-10.0)
[2024-06-25 05:30] LABS: PLATELET COUNT, AUTOMATED 320 10^3/uL (150-450)
[2024-06-25 05:38] LABS: C REACTIVE PROTEIN QUANTITATIV 5.62 MG/DL (<1.0)
[2024-06-25 05:39] LABS: ALBUMIN 2.9 G/DL (3.2-5.2); ALKALINE PHOSPHATASE 52 U/L (35-104); ALT/SGPT 23 U/L (7.0-40); AST/SGOT 19 U/L (<34); BILIRUBIN,TOTAL 0.4 MG/DL (0.3-1.2); BLOOD UREA NITROGEN < 5 MG/DL (9-23); CALCIUM LEVEL 8.4 MG/DL (8.5-10.1); CARBON DIOXIDE LEVEL 24 MMOL/L (20-31); CHLORIDE LEVEL 112 MMOL/L (98-107); CREATININE FOR GFR 0.61 MG/DL (0.55-1.30); GLOMERULAR FILTRATION RATE > 60.0 (>60); GLUCOSE, FASTING 82 MG/DL (60-100); POTASSIUM SERUM 4.1 MMOL/L (3.5-5.1); SODIUM LEVEL 145 MMOL/L (136-145); TOTAL PROTEIN 5.8 G/DL (5.7-8.2)
[2024-06-25 08:00] VITALS: BP 108/59; TEMP 98.1; O2SAT 98
[2024-06-25] MEDS: diphenhydrAMINE 50MG/ML VIAL IV ONE (08:54)
[2024-06-25] MEDS: KETOROLAC 30 MG/ML 1ML VIAL IV ONE (08:55)
[2024-06-25 16:00] VITALS: BP 112/68; TEMP 98.4; O2SAT 98
[2024-06-25] MEDS ORDERED: LEVO1TAB40 PO (16:34)
[2024-06-25 16:52] LABS: MONO REFLEX EBV COMP POSITIVE (NEGATIVE)
[2024-06-26] MEDS ORDERED: ENOXAPARIN 40MG/0.4ML SYRINGE (J1650 PER 10MG) SC SCH (09:00)
== END 2024-06-25 17:05 | disposition home or self-care (01) | DRG 720 ==
LOC: M ED 12:41 → M ED INP 16:28 → M ICU 20:13
PROVIDERS: ADMIT Internal Medicine; ATTEND Internal Medicine
PROC: 02HV33Z Insertion of Infusion Device into Superior Vena Cava, Percutaneous Approach (ICD-10-PCS; 2024-06-23)
PROC: 009U3ZX Drainage of Spinal Canal, Percutaneous Approach, Diagnostic (ICD-10-PCS; principal; 2024-06-24 15:56)
DX: A41.9 Sepsis, unspecified organism (principal); R65.21 Severe sepsis with septic shock; D84.9 Immunodeficiency, unspecified; D58.9 Hereditary hemolytic anemia, unspecified; N13.30 Unspecified hydronephrosis; D50.9 Iron deficiency anemia, unspecified; R07.89 Other chest pain; E66.9 Obesity, unspecified; F17.290 Nicotine dependence, other tobacco product, uncomplicated; D47.3 Essential (hemorrhagic) thrombocythemia; Z68.32 Body mass index [BMI] 32.0-32.9, adult; G43.909 Migraine, unspecified, not intractable, without status migrainosus; M54.50 Low back pain, unspecified; Z90.49 Acquired absence of other specified parts of digestive tract; Z90.81 Acquired absence of spleen; Z79.899 Other long term (current) drug therapy; Z88.1 Allergy status to other antibiotic agents; R91.1 Solitary pulmonary nodule; N83.201 Unspecified ovarian cyst, right side

== ENCOUNTER → 2024-06-23 | Outpatient (CLI) | payer OTHER ==
[~2024-06-23] MED LIST changes: +ACET-897 PO; +AMOX875T2 PO; +ETON68IM SC; +LEVO1TAB40 PO; +ONDA-282 PO; +PROC25SU27 PR; +PROM50TA4 PO; +PYRI1TAB5 PO
[2024-06-23 12:00] LABS: BASO # 0.2 10^3/uL (0.0-0.2); BASO % 0.6 % (0.0-1.0); EOS % 0.1 % (0.0-3.0); HEMATOCRIT 39.9 % (36.0-47.0); HEMOGLOBIN 14.2 g/dl (12.0-15.5); LYMPH # 1.4 10^3/uL (1.5-5.0); LYMPH % 4.9 % (24.0-44.0); MEAN CORPUSCULAR HEMOGLOBIN 31.4 pg (27.0-33.0); MEAN CORPUSCULAR HGB CONC 35.6 g/dl (32.0-36.5); MEAN CORPUSCULAR VOLUME 88.3 fl (80.0-96.0); MONO # 1.7 10^3/uL (0.0-0.8); NEUTROPHILS # 25.3 10^3/uL (1.5-8.5); NEUTROPHILS % 87.9 % (36.0-66.0); PLATELET COUNT, AUTOMATED 547 10^3/uL (150-450); RED BLOOD COUNT 4.52 10^6/uL (4.00-5.40); WHITE BLOOD COUNT 28.7 10^3/uL (4.0-10.0)
[2024-06-23 12:04] LABS: ERYTHROCYTE SEDIMENTATION RATE < 1 mm/hr (0-20)
[2024-06-23 12:26] LABS: ALKALINE PHOSPHATASE 68 U/L (35-104); ALT/SGPT 14 U/L (7.0-40); AST/SGOT 12 U/L (<34); BILIRUBIN,TOTAL 1.9 MG/DL (0.3-1.2); BLOOD UREA NITROGEN 11 MG/DL (9-23); C REACTIVE PROTEIN QUANTITATIV < 0.50 MG/DL (<1.0); CALCIUM LEVEL 9.3 MG/DL (8.5-10.1); CARBON DIOXIDE LEVEL 22 MMOL/L (20-31); CHLORIDE LEVEL 107 MMOL/L (98-107); CREATININE FOR GFR 0.73 MG/DL (0.55-1.30); GLOMERULAR FILTRATION RATE > 60.0 (>60); GLUCOSE, FASTING 106 MG/DL (60-100); POTASSIUM SERUM 4.3 MMOL/L (3.5-5.1); SODIUM LEVEL 140 MMOL/L (136-145); TOTAL PROTEIN 7.1 G/DL (5.7-8.2)
== END ==
LOC: M LAB 11:21
PROVIDERS: ATTEND Nurse Practitioner Family
DX: D50.9 Iron deficiency anemia, unspecified (principal)

== ENCOUNTER → 2024-06-23 | Outpatient (CLI) | payer OTHER ==
[2024-06-23 16:46] LABS: APPEARANCE, URINE CLEAR (CLEAR); BACTERIA, URINE AUTO NEGATIVE (NEGATIVE); BILIRUBIN, URINE AUTO NEGATIVE (NEGATIVE); BLOOD, URINE BLOOD NEGATIVE (NEGATIVE); COLOR, URINE YELLOW (YELLOW); GLUCOSE, URINE (UA) AUTO NEGATIVE (NEGATIVE); KETONE, URINE AUTO NEGATIVE (NEGATIVE); LEUKOCYTE ESTERASE, URINE AUTO NEGATIVE (NEGATIVE); MUCUS, URINE SMALL (NEGATIVE); NITRITE, URINE AUTO NEGATIVE (NEGATIVE); PROTEIN, URINE AUTO NEGATIVE (NEGATIVE); RBC, URINE AUTO 2 /HPF (0-3); SPECIFIC GRAVITY URINE AUTO 1.018 (1.002-1.035); SQUAMOUS EPITHELIAL CELL UR AU 3 /HPF (0-6); UROBILINOGEN, URINE AUTO 0.2 mg/dL (0.0-2.0); WBC, URINE AUTO 0 /HPF (0-3)
== END ==
LOC: M LAB 11:26
PROVIDERS: ATTEND Obstetrics & Gynecology Obstetrics
DX: Z09 Encounter for follow-up examination after completed treatment for conditions other than malignant neoplasm (principal)

== ENCOUNTER → 2024-07-01 | Outpatient (REF) | payer OTHER ==
[~2024-07-01] MED LIST changes: +AMOX875T2 PO; +ETON68IM SC
== END ==
LOC: M LAB REF 15:17
PROVIDERS: ATTEND Nurse Practitioner Family
DX: A41.51 Sepsis due to Escherichia coli [E. coli] (principal); R79.82 Elevated C-reactive protein (CRP)

== ENCOUNTER 2024-07-08 16:55 | Emergency (ER) | payer OTHER ==
[~2024-07-08] VITALS: Ht 175.3 cm; Wt 99.2 kg
[2024-07-08 18:41] LABS: KETONE, URINE AUTO RFX NEGATIVE (NEGATIVE); LEUKOCYTE ESTERASE UR AUTO RFX NEGATIVE (NEGATIVE); NITRITE, URINE AUTO RFX NEGATIVE (NEGATIVE); RBC, URINE AUTO RFX 5 /HPF (0-3); SQUAM EPITHELIAL CELL UR AURFX 2 /HPF (0-6); WBC, URINE AUTO RFX 0 /HPF (0-3)
[2024-07-08 20:26] VITALS: BP 125/72; TEMP 98.3; O2SAT 99
[2024-07-08 20:44] LABS: BASO # 0.1 10^3/uL (0.0-0.2); BASO % 1.1 % (0.0-1.0); EOS # 0.1 10^3/uL (0.0-0.5); HEMOGLOBIN 14.2 g/dl (12.0-15.5); LYMPH # 4.1 10^3/uL (1.5-5.0); LYMPH % 35.1 % (24.0-44.0); MEAN CORPUSCULAR HEMOGLOBIN 30.7 pg (27.0-33.0); MEAN CORPUSCULAR HGB CONC 34.6 g/dl (32.0-36.5); MEAN CORPUSCULAR VOLUME 88.7 fl (80.0-96.0); MONO # 1.1 10^3/uL (0.0-0.8); MONO % 9.4 % (2.0-8.0); NEUTROPHILS # 6.2 10^3/uL (1.5-8.5); NEUTROPHILS % 53.1 % (36.0-66.0); PLATELET COUNT, AUTOMATED 450 10^3/uL (150-450); RED BLOOD COUNT 4.62 10^6/uL (4.00-5.40); WHITE BLOOD COUNT 11.7 10^3/uL (4.0-10.0)
[2024-07-08 21:14] LABS: LIPASE 41 U/L (12-53)
[2024-07-08 21:21] LABS: ALBUMIN 3.9 G/DL (3.2-5.2); ALKALINE PHOSPHATASE 62 U/L (35-104); ALT/SGPT 16 U/L (7.0-40); AST/SGOT 11 U/L (<34); BILIRUBIN,DIRECT 0.3 MG/DL (<0.4); BLOOD UREA NITROGEN 8 MG/DL (9-23); CALCIUM LEVEL 9.6 MG/DL (8.5-10.1); CARBON DIOXIDE LEVEL 26 MMOL/L (20-31); CHLORIDE LEVEL 107 MMOL/L (98-107); CREATININE FOR GFR 0.68 MG/DL (0.55-1.30); GLOMERULAR FILTRATION RATE > 60.0 (>60); GLUCOSE, FASTING 89 MG/DL (60-100); POTASSIUM SERUM 4.1 MMOL/L (3.5-5.1); SODIUM LEVEL 141 MMOL/L (136-145); TOTAL PROTEIN 7.4 G/DL (5.7-8.2)
== END 2024-07-08 22:40 | disposition left against medical advice (07) ==
LOC: M ED 16:55
DX: Z53.21 Procedure and treatment not carried out due to patient leaving prior to being seen by health care provider (principal)

== ENCOUNTER → 2024-07-11 | Outpatient (REF) | payer OTHER ==
[~2024-07-11] MED LIST changes: +DIFI200T PO
== END ==
LOC: M SFHCPLAZ 14:57
PROVIDERS: ATTEND Internal Medicine Infectious Disease
DX: R19.4 Change in bowel habit (principal); A04.72 Enterocolitis due to Clostridium difficile, not specified as recurrent

== ENCOUNTER 2024-07-14 17:15 | Inpatient (IN) | payer OTHER ==
[~2024-07-14] VITALS: Ht 175.3 cm; Wt 101.8 kg
[~2024-07-14 17:15] MED LIST changes: -DIFI200T PO
[2024-07-14] MEDS: NS (Normal Saline) 0.9% 1,000 ML IV ONE ×4 (17:56→23:42)
[2024-07-14] MEDS: MORPHINE 4 MG/ML 1ML VIAL IV PRN (17:57)
[2024-07-14 18:03] LABS: BASO # 0.2 10^3/uL (0.0-0.2); BASO % 0.7 % (0.0-1.0); HEMATOCRIT 40.4 % (36.0-47.0); HEMOGLOBIN 14.1 g/dl (12.0-15.5); LYMPH # 1.3 10^3/uL (1.5-5.0); LYMPH % 4.8 % (24.0-44.0); MEAN CORPUSCULAR HEMOGLOBIN 30.9 pg (27.0-33.0); MEAN CORPUSCULAR HGB CONC 34.9 g/dl (32.0-36.5); MEAN CORPUSCULAR VOLUME 88.4 fl (80.0-96.0); MONO # 1.5 10^3/uL (0.0-0.8); MONO % 5.4 % (2.0-8.0); NEUTROPHILS # 24.2 10^3/uL (1.5-8.5); NEUTROPHILS % 88.6 % (36.0-66.0); PLATELET COUNT, AUTOMATED 532 10^3/uL (150-450); RED BLOOD COUNT 4.57 10^6/uL (4.00-5.40); WHITE BLOOD COUNT 27.4 10^3/uL (4.0-10.0)
[2024-07-14 18:08] LABS: ABG BASE EXCESS -1.4 (-2.0-2.0); ABG O2 SATURATION 97.7 % (95.0-99.0); ABG PARTIAL PRESSURE CO2 22.2 mmHg (35.0-45.0); ABG PARTIAL PRESSURE O2 100.5 mmHg (75.0-100.0); ABG STANDARD HCO3 23.3 MMOL/L. (22.0-26.0); ABG TOTAL CO2 19.7 MMOL/L (22.0-29.0)
[2024-07-14] MEDS ORDERED: ONDANSETRON 4MG 2ML VIAL As Ordered ONE (18:12)
[2024-07-14] MEDS: ONDANSETRON 4MG 2ML VIAL IV ONE (18:14)
[2024-07-14 18:28] LABS: APPEARANCE, URINE CLEAR (CLEAR); BACTERIA, URINE AUTO 1+ (NEGATIVE); BILIRUBIN, URINE AUTO NEGATIVE (NEGATIVE); BLOOD, URINE BLOOD 1+ (NEGATIVE); COLOR, URINE YELLOW (YELLOW); GLUCOSE, URINE (UA) AUTO NEGATIVE (NEGATIVE); KETONE, URINE AUTO NEGATIVE (NEGATIVE); LEUKOCYTE ESTERASE, URINE AUTO NEGATIVE (NEGATIVE); NITRITE, URINE AUTO NEGATIVE (NEGATIVE); PROTEIN, URINE AUTO NEGATIVE (NEGATIVE); RBC, URINE AUTO 1 /HPF (0-3); SPECIFIC GRAVITY URINE AUTO 1.013 (1.002-1.035); SQUAMOUS EPITHELIAL CELL UR AU 2 /HPF (0-6); UROBILINOGEN, URINE AUTO 0.2 mg/dL (0.0-2.0); WBC, URINE AUTO 1 /HPF (0-3)
[2024-07-14 18:32] LABS: AMYLASE 69 U/L (30-118)
[2024-07-14 18:33] LABS: ALBUMIN 3.9 G/DL (3.2-5.2); ALKALINE PHOSPHATASE 72 U/L (35-104); ALT/SGPT 32 U/L (7.0-40); AST/SGOT 30 U/L (<34); BILIRUBIN,DIRECT 0.3 MG/DL (<0.4); BILIRUBIN,TOTAL 1.1 MG/DL (0.3-1.2); BLOOD UREA NITROGEN 11 MG/DL (9-23); C REACTIVE PROTEIN QUANTITATIV 1.01 MG/DL (<1.0); CALCIUM LEVEL 9.3 MG/DL (8.5-10.1); CARBON DIOXIDE LEVEL 24 MMOL/L (20-31); CHLORIDE LEVEL 106 MMOL/L (98-107); GLOMERULAR FILTRATION RATE > 60.0 (>60); GLUCOSE, FASTING 97 MG/DL (60-100); POTASSIUM SERUM 4.2 MMOL/L (3.5-5.1); SODIUM LEVEL 137 MMOL/L (136-145); TOTAL PROTEIN 7.1 G/DL (5.7-8.2)
[2024-07-14 18:44] LABS: PROCALCITONIN 0.06 ng/ml
[2024-07-14] MEDS ORDERED: ISOVUE-370 76% 100ML VIAL As Ordered ONE (18:44)
[2024-07-14] MEDS: ACETAMINOPHEN *IV* 1,000 MG in IV 1 EA IV ONE (21:00)
[2024-07-14 21:13] LABS: KETONE, URINE AUTO RFX NEGATIVE (NEGATIVE); LEUKOCYTE ESTERASE UR AUTO RFX NEGATIVE (NEGATIVE); NITRITE, URINE AUTO RFX NEGATIVE (NEGATIVE); RBC, URINE AUTO RFX 0 /HPF (0-3); SQUAM EPITHELIAL CELL UR AURFX 0 /HPF (0-6); WBC, URINE AUTO RFX 0 /HPF (0-3)
[2024-07-14 21:29] LABS: MONO REFLEX EBV COMP POSITIVE (NEGATIVE)
[2024-07-14] MEDS ORDERED: MAALOX 30 ML SUSP *UDC PO PRN (22:40)
[2024-07-14] MEDS ORDERED: MOM 30ML SUSPENSION UDC PO PRN (22:40)
[2024-07-14] MEDS ORDERED: DIFI200T PO (23:15)
[2024-07-14] MEDS ORDERED: HOME MED LIST COMPLETE! XX SCH (23:20)
[2024-07-14] MEDS: HYDROCORTISONE 100MG/2ML VIAL IV ONE (23:42)
[2024-07-14 23:57] LABS: INR 1.02; PROTHROMBIN TIME 13.7 SECONDS (12.5-14.5)
[2024-07-15] VITALS (12 sets, daily range): BP systolic 101–145; BP diastolic 53–79; TEMP 96.8–98.7; O2SAT 94–100
[2024-07-15] MEDS: CEFEPIME HCL 2 GM in DEXTROSE 5% (D5W) ADV/MINI-BAG 50 ML IV SCH (00:01)
[2024-07-15 00:13] LABS: IMMUNOGLOBULIN A 228.2 MG/DL (40-350); IMMUNOGLOBULIN M 31.1 MG/DL (50-300)
[2024-07-15 00:20] LABS: BLOOD UREA NITROGEN 7 MG/DL (9-23); CALCIUM LEVEL 7.8 MG/DL (8.5-10.1); CARBON DIOXIDE LEVEL 20 MMOL/L (20-31); CHLORIDE LEVEL 110 MMOL/L (98-107); CREATININE FOR GFR 0.71 MG/DL (0.55-1.30); GLOMERULAR FILTRATION RATE > 60.0 (>60); GLUCOSE, FASTING 94 MG/DL (60-100); MAGNESIUM LEVEL 1.6 MG/DL (1.8-2.4); POTASSIUM SERUM 3.9 MMOL/L (3.5-5.1); SODIUM LEVEL 139 MMOL/L (136-145)
[2024-07-15] MEDS ORDERED: IMMUNE GLOBULIN 10% 0 GM in IV 1 EA IV SCH (00:20)
[2024-07-15] MEDS ORDERED: MORPHINE 2 MG/ML 1ML VIAL IV PRN (00:25)
[2024-07-15] MEDS: KETOROLAC 30 MG/ML 1ML VIAL IV ONE (01:00)
[2024-07-15] MEDS: LINEZOLID 600 MG in IV 1 EA IV SCH (01:21)
[2024-07-15] MEDS: MORPHINE 4 MG/ML 1ML VIAL IV PRN (01:57)
[2024-07-15] MEDS: IMMUNE GLOBULIN 10% 40 GM in IV 1 EA IV ONE (04:09)
[2024-07-15] MEDS ORDERED: NALOXONE INJ 0.4MG/1ML VIAL IV PRN (04:40)
[2024-07-15] MEDS: MAG SULF 1GM/100ML (MAG RUN) 1 GM in IV 1 EA IV ONE (05:03)
[2024-07-15] MEDS: NS (Normal Saline) 0.9% 1,000 ML IV SCH (05:03)
[2024-07-15] MEDS: DOCUSATE SODIUM 100MG CAPSULE PO SCH (07:18)
[2024-07-15] MEDS: ONDANSETRON 4MG 2ML VIAL IV PRN (07:20)
[2024-07-15] MEDS: ACETAMINOPHEN 325 MG TAB PO PRN (07:20)
[2024-07-15 07:23] LABS: HEMOGLOBIN 12.2 g/dl (12.0-15.5); MEAN CORPUSCULAR HEMOGLOBIN 30.9 pg (27.0-33.0); MEAN CORPUSCULAR HGB CONC 33.9 g/dl (32.0-36.5); MEAN CORPUSCULAR VOLUME 91.1 fl (80.0-96.0); RED BLOOD COUNT 3.95 10^6/uL (4.00-5.40); WHITE BLOOD COUNT 13.9 10^3/uL (4.0-10.0)
[2024-07-15 07:26] LABS: PLATELET COUNT, AUTOMATED 355 10^3/uL (150-450)
[2024-07-15 07:46] LABS: ALBUMIN 2.8 G/DL (3.2-5.2); ALKALINE PHOSPHATASE 51 U/L (35-104); ALT/SGPT 21 U/L (7.0-40); AST/SGOT 16 U/L (<34); BILIRUBIN,TOTAL 0.9 MG/DL (0.3-1.2); BLOOD UREA NITROGEN 6 MG/DL (9-23); CARBON DIOXIDE LEVEL 22 MMOL/L (20-31); CHLORIDE LEVEL 110 MMOL/L (98-107); CREATININE FOR GFR 0.64 MG/DL (0.55-1.30); GLOMERULAR FILTRATION RATE > 60.0 (>60); GLUCOSE, FASTING 115 MG/DL (60-100); MAGNESIUM LEVEL 2.3 MG/DL (1.8-2.4); POTASSIUM SERUM 4.3 MMOL/L (3.5-5.1); SODIUM LEVEL 139 MMOL/L (136-145); TOTAL PROTEIN 6.3 G/DL (5.7-8.2)
[2024-07-15] MEDS: PANTOPRAZOLE 40MG VIAL IV SCH (09:02)
[2024-07-15] MEDS: FIDAXOMICIN 200 MG TAB (DIFICID) PO SCH (09:02)
[2024-07-15] MEDS: ENOXAPARIN 40MG/0.4ML SYRINGE (J1650 PER 10MG) SC SCH (09:03)
[2024-07-15 10:55] LABS: HIV 1&2 SCREEN NEGATIVE (NEGATIVE)
[2024-07-15 18:17] LABS: GC DNA AMPLIFICATION NEGATIVE (NEGATIVE)
== END 2024-07-15 17:39 | disposition home or self-care (01) | DRG 720 ==
LOC: M ED 17:15 → M ED INP 23:10 → M ICU 07-15 04:04
PROVIDERS: ADMIT Family Medicine; ATTEND Family Medicine
PROC: B246ZZZ Ultrasonography of Right and Left Heart (ICD-10-PCS; principal; 2024-07-15)
DX: A41.9 Sepsis, unspecified organism (principal); D84.9 Immunodeficiency, unspecified; A04.72 Enterocolitis due to Clostridium difficile, not specified as recurrent; E83.42 Hypomagnesemia; N83.201 Unspecified ovarian cyst, right side; D50.9 Iron deficiency anemia, unspecified; D47.3 Essential (hemorrhagic) thrombocythemia; Z90.81 Acquired absence of spleen; Z79.899 Other long term (current) drug therapy; Z88.1 Allergy status to other antibiotic agents; Z90.49 Acquired absence of other specified parts of digestive tract

== ENCOUNTER → 2024-07-22 | Outpatient (REF) | payer OTHER ==
[~2024-07-22] MED LIST changes: +DIFI200T PO
[2024-07-22 14:00] LABS: RSV AMPLIFICATION NEGATIVE (NEGATIVE)
== END ==
LOC: M SFHCPLAZ 12:36
PROVIDERS: ATTEND Internal Medicine Infectious Disease
DX: R68.89 Other general symptoms and signs (principal)

== ENCOUNTER → 2024-08-06 | Outpatient (REF) | payer OTHER | LOC: M SFHCPLAZ 16:43 | PROVIDERS: ATTEND Internal Medicine Infectious Disease | DX: Z53.9 Procedure and treatment not carried out, unspecified reason (principal) ==

== ENCOUNTER → 2024-10-16 | Outpatient (REF) | payer OTHER ==
[2024-10-16 18:33] LABS: C REACTIVE PROTEIN QUANTITATIV < 0.50 MG/DL (<1.0)
[2024-10-16 18:34] LABS: RHEUMATOID FACTOR QUANT < 3.5 IU/ML (<14)
== END ==
LOC: M LAB REF 17:52
PROVIDERS: ATTEND Nurse Practitioner Family
DX: M25.50 Pain in unspecified joint (principal); R53.83 Other fatigue

== ENCOUNTER → 2024-10-28 | Outpatient (CLI) | payer OTHER | LOC: M RAD 16:09 | PROVIDERS: ATTEND Obstetrics & Gynecology Obstetrics | DX: N83.202 Unspecified ovarian cyst, left side (principal) ==

== ENCOUNTER → 2024-12-17 | Outpatient (REF) | payer OTHER ==
[~2024-12-17] MED LIST changes: -IBUP1TAB6 PO; +SFHIBU600 PO
[2024-12-17 20:02] LABS: HEPATITIS C VIRUS ABY INDEX < 0.02 INDEX (<0.8)
== END ==
LOC: M SFHCADAM 11:34
PROVIDERS: ATTEND Physician Assistant
DX: L40.0 Psoriasis vulgaris (principal); L70.0 Acne vulgaris; Z79.899 Other long term (current) drug therapy; L21.9 Seborrheic dermatitis, unspecified; Z83.2 Family history of diseases of the blood and blood-forming organs and certain disorders involving the immune mechanism

== ENCOUNTER 2025-02-18 19:07 | Inpatient (IN) | payer OTHER ==
[~2025-02-18] VITALS: Ht 165.1 cm; Wt 106.7 kg
[~2025-02-18 19:07] MED LIST changes: -DULO1CAP5 PO; -IBUP200T46 PO
[2025-02-18] MEDS ORDERED: DULO1CAP5 PO (19:28)
[2025-02-18] MEDS: NS (Normal Saline) 0.9% 1,000 ML IV ONE (20:06)
[2025-02-18] MEDS: MEROPENEM 1 GM in IV 1 EA IV ONE (20:13)
[2025-02-18] MEDS: ONDANSETRON 4MG/2ML VIAL IV ONE (20:13)
[2025-02-18 20:26] LABS: PLATELET COUNT, AUTOMATED 533 10^3/uL (150-450)
[2025-02-18 20:44] LABS: BASOPHILS 2 % (0-1); LYMPHOCYTES 8 % (16-44); MONOCYTES 5 % (0-5); NEUTROPHILS 83 % (28-66)
[2025-02-18 20:45] LABS: PLATELET ESTIMATE INCREASED (NORMAL)
[2025-02-18 20:53] LABS: KETONE, URINE AUTO RFX TRACE mg/dL (NEGATIVE); LEUKOCYTE ESTERASE UR AUTO RFX NEGATIVE (NEGATIVE); NITRITE, URINE AUTO RFX NEGATIVE (NEGATIVE); RBC, URINE AUTO RFX 1 /HPF (0-3); SQUAM EPITHELIAL CELL UR AURFX 2 /HPF (0-6); WBC, URINE AUTO RFX 1 /HPF (0-3)
[2025-02-18 20:55] LABS: ALT/SGPT 19 U/L (7.0-40); AST/SGOT 26 U/L (<34); CALCIUM LEVEL 9.6 MG/DL (8.5-10.1); CARBON DIOXIDE LEVEL 22 MMOL/L (20-31); CHLORIDE LEVEL 107 MMOL/L (98-107); CREATININE FOR GFR 0.74 MG/DL (0.55-1.30); GLOMERULAR FILTRATION RATE > 90.0 (>60); POTASSIUM SERUM 3.9 MMOL/L (3.5-5.1); SODIUM LEVEL 141 MMOL/L (136-145)
[2025-02-18 21:19] LABS: HCG, SERUM QUALITATIVE NEGATIVE (NEGATIVE)
[2025-02-18] MEDS: MORPHINE 4 MG/ML 1 ML VIAL IV ONE (21:34)
[2025-02-18] MEDS ORDERED: ISOVUE-370 76% 100 ML VIAL As Ordered ONE (21:43)
[2025-02-18] MEDS: diphenhydrAMINE 50 MG/ML VIAL IV STA (22:08)
[2025-02-18] MEDS ORDERED: IBUP200T46 PO (23:15)
[2025-02-18] MEDS ORDERED: HOME MED LIST COMPLETE! XX SCH (23:15)
[2025-02-18] MEDS ORDERED: VANCOMYCIN HCL 1,000 MG, VIAL MATE ADAPTER 1 EACH in NS 250 ML IV SCH (23:35)
[2025-02-18] MEDS ORDERED: MORPHINE 4 MG/ML 1 ML VIAL IV PRN (23:40)
[2025-02-19] MEDS: diphenhydrAMINE 50 MG/ML VIAL IV ONE ×2 (00:49→13:18)
[2025-02-19] MEDS: MORPHINE 4 MG/ML 1 ML VIAL IV ONE (00:50)
[2025-02-19] MEDS: VANCOMYCIN HCL 2,000 MG, VIAL MATE ADAPTER 1 EACH in NS 500 ML IV ONE (00:53)
[2025-02-19 01:32] VITALS: BP 111/55; TEMP 99.6; O2SAT 97
[2025-02-19 04:51] VITALS: BP 107/54; TEMP 98.9; O2SAT 97
[2025-02-19 06:15] LABS: PLATELET COUNT, AUTOMATED 470 10^3/uL (150-450)
[2025-02-19 06:54] LABS: ALT/SGPT 22 U/L (7.0-40); AST/SGOT 24 U/L (<34); CALCIUM LEVEL 8.2 MG/DL (8.5-10.1); CARBON DIOXIDE LEVEL 24 MMOL/L (20-31); CHLORIDE LEVEL 105 MMOL/L (98-107); CREATININE FOR GFR 0.75 MG/DL (0.55-1.30); GLOMERULAR FILTRATION RATE > 90.0 (>60); MAGNESIUM LEVEL 2.0 MG/DL (1.8-2.4); POTASSIUM SERUM 4.1 MMOL/L (3.5-5.1); SODIUM LEVEL 138 MMOL/L (136-145)
[2025-02-19] MEDS: VANCOMYCIN HCL 1,250 MG, VIAL MATE ADAPTER 1 EACH in NS 250 ML IV SCH (09:39)
[2025-02-19] MEDS: diphenhydrAMINE 50 MG/ML VIAL IV SCH (09:39)
[2025-02-19] MEDS: DOCUSATE SODIUM 100 MG CAPSULE PO SCH (09:39)
[2025-02-19] MEDS: ENOXAPARIN 40 MG/0.4 ML SYRINGE (J1650 PER 10MG) SC SCH (09:40)
[2025-02-19] MEDS: ONDANSETRON 4MG/2ML VIAL IV PRN (09:45)
[2025-02-19] MEDS: MORPHINE 4 MG/ML 1 ML VIAL IV PRN ×2 (09:45→16:34)
[2025-02-19 12:05] VITALS: BP 108/58; TEMP 99.3; O2SAT 96
[2025-02-19] MEDS ORDERED: CHLORASEPTIC SPRAY MT PRN (20:10)
[2025-02-19] MEDS: KETOROLAC 30 MG/ML 1 ML VIAL IV PRN (20:41)
[2025-02-19] MEDS: DOXYCYCLINE HYCLATE 100 MG TABLET PO SCH (20:42)
[2025-02-19] MEDS: FAMOTIDINE 20 MG TAB PO SCH (20:42)
[2025-02-19] MEDS: FLUTICASONE PROPIONATE 0.05% NASAL SPRAY 16 GM NARES SCH (21:00)
[2025-02-19] MEDS: PIPERACILLIN/TAZOBACTAM SOD 4.5 GM in DEXTROSE 5% (D5W) ADV/MINI-BAG 50 ML IV SCH (22:01)
[2025-02-19 22:09] VITALS: BP 102/50; TEMP 102.1; O2SAT 97
[2025-02-19 23:26] VITALS: TEMP 98.7
[2025-02-20 05:32] VITALS: BP 80/48; TEMP 98.7; O2SAT 98
[2025-02-20] MEDS: NS (Normal Saline) 0.9% 1,000 ML IV ONE (06:30)
[2025-02-20 07:19] LABS: BASO # 0.1 10^3/uL (0.0-0.2); BASO % 0.5 % (0.0-1.0); EOS # 0.2 10^3/uL (0.0-0.5); EOS % 0.7 % (0.0-3.0); LYMPH # 3.0 10^3/uL (1.5-5.0); LYMPH % 14.3 % (24.0-44.0); MONO % 12.7 % (2.0-8.0); NEUTROPHILS # 15.0 10^3/uL (1.5-8.5); NEUTROPHILS % 71.3 % (36.0-66.0); PLATELET COUNT, AUTOMATED 457 10^3/uL (150-450)
[2025-02-20 07:45] VITALS: BP 98/58
[2025-02-20 07:47] LABS: MONO # 2.7 10^3/uL (0.0-0.8)
[2025-02-20 07:48] LABS: CALCIUM LEVEL 8.3 MG/DL (8.5-10.1); CARBON DIOXIDE LEVEL 25 MMOL/L (20-31); CHLORIDE LEVEL 109 MMOL/L (98-107); CREATININE FOR GFR 0.71 MG/DL (0.55-1.30); GLOMERULAR FILTRATION RATE > 90.0 (>60); POTASSIUM SERUM 4.1 MMOL/L (3.5-5.1); SODIUM LEVEL 143 MMOL/L (136-145)
[2025-02-20] MEDS: ACETAMINOPHEN 325 MG TAB PO PRN (08:13)
[2025-02-20 10:58] LABS: MONO REFLEX EBV VCA IgM NEGATIVE (NEGATIVE)
[2025-02-20 11:45] VITALS: BP 109/60; TEMP 98.5; O2SAT 97
[2025-02-20] MEDS: CEFPODOXIME PROXETIL 200 MG TABLET PO SCH (20:49)
[2025-02-20 21:32] VITALS: BP 117/56; TEMP 98.7; O2SAT 98
[2025-02-21 04:11] VITALS: BP 103/59; TEMP 97.7; O2SAT 98
[2025-02-21 07:10] LABS: BASO # 0.1 10^3/uL (0.0-0.2); BASO % 0.9 % (0.0-1.0); EOS # 0.2 10^3/uL (0.0-0.5); EOS % 1.7 % (0.0-3.0); LYMPH # 3.6 10^3/uL (1.5-5.0); LYMPH % 30.9 % (24.0-44.0); MONO # 1.6 10^3/uL (0.0-0.8); MONO % 13.6 % (2.0-8.0); NEUTROPHILS # 6.1 10^3/uL (1.5-8.5); NEUTROPHILS % 52.6 % (36.0-66.0); PLATELET COUNT, AUTOMATED 508 10^3/uL (150-450)
[2025-02-21 07:45] LABS: CALCIUM LEVEL 9.0 MG/DL (8.5-10.1); CARBON DIOXIDE LEVEL 24 MMOL/L (20-31); CHLORIDE LEVEL 106 MMOL/L (98-107); CREATININE FOR GFR 0.66 MG/DL (0.55-1.30); GLOMERULAR FILTRATION RATE > 90.0 (>60); POTASSIUM SERUM 3.9 MMOL/L (3.5-5.1); SODIUM LEVEL 141 MMOL/L (136-145)
[2025-02-21] MEDS ORDERED: CEFP200T PO (11:10)
[2025-02-21] MEDS ORDERED: CHLORSP MT (11:10)
[2025-02-21] MEDS ORDERED: RISATAB3 PO (11:10)
== END 2025-02-21 12:53 | disposition home or self-care (01) | DRG 872 ==
LOC: M ED 19:07 → M ED INP 23:33 → M MSPAV 02-19 01:13
PROVIDERS: ADMIT Student in an Organized Health Care Education/Training Program; ATTEND Internal Medicine Nephrology
DX: A41.9 Sepsis, unspecified organism (principal); D84.9 Immunodeficiency, unspecified; D50.9 Iron deficiency anemia, unspecified; B34.9 Viral infection, unspecified; E66.9 Obesity, unspecified; G43.909 Migraine, unspecified, not intractable, without status migrainosus; Z79.899 Other long term (current) drug therapy; Z88.0 Allergy status to penicillin; Z90.81 Acquired absence of spleen; Z90.49 Acquired absence of other specified parts of digestive tract

== ENCOUNTER → 2025-02-18 | Outpatient (REF) | payer OTHER ==
[~2025-02-18] MED LIST changes: +DULO1CAP5 PO; +IBUP200T46 PO
[2025-02-18 17:32] LABS: BASO # 0.1 10^3/uL (0.0-0.2); BASO % 0.6 % (0.0-1.0); EOS # 0.1 10^3/uL (0.0-0.5); EOS % 0.2 % (0.0-3.0); LYMPH # 2.1 10^3/uL (1.5-5.0); LYMPH % 8.4 % (24.0-44.0); MONO # 2.2 10^3/uL (0.0-0.8); MONO % 8.7 % (2.0-8.0); NEUTROPHILS # 20.2 10^3/uL (1.5-8.5); NEUTROPHILS % 81.5 % (36.0-66.0); PLATELET COUNT, AUTOMATED 565 10^3/uL (150-450)
[2025-02-18 18:02] LABS: ALT/SGPT 17 U/L (7.0-40); AST/SGOT 18 U/L (<34); CALCIUM LEVEL 9.4 MG/DL (8.5-10.1); CARBON DIOXIDE LEVEL 26 MMOL/L (20-31); CHLORIDE LEVEL 105 MMOL/L (98-107); CREATININE FOR GFR 0.77 MG/DL (0.55-1.30); GLOMERULAR FILTRATION RATE > 90.0 (>60); POTASSIUM SERUM 4.4 MMOL/L (3.5-5.1); SODIUM LEVEL 140 MMOL/L (136-145)
== END ==
LOC: M LAB REF 16:31
PROVIDERS: ATTEND Nurse Practitioner Family
DX: R53.83 Other fatigue (principal); D50.9 Iron deficiency anemia, unspecified; D58.0 Hereditary spherocytosis

== ENCOUNTER → 2025-02-25 | Outpatient (REF) | payer OTHER ==
[~2025-02-25] MED LIST changes: +CEFP200T PO; +CHLORSP MT; +DULO1CAP5 PO; +IBUP200T46 PO; +RISATAB3 PO
[2025-02-25 14:37] LABS: IRON (FE) 135.0 UG/DL (50-170); PERCENT SATURATION 40.5 % (13.2-45.0)
== END ==
LOC: M LAB REF 13:51
PROVIDERS: ATTEND Nurse Practitioner Family
DX: D50.9 Iron deficiency anemia, unspecified (principal)

== ENCOUNTER 2025-03-05 18:31 | Emergency (ER) | payer OTHER ==
[~2025-03-05] VITALS: Ht 175.3 cm; Wt 104.3 kg
[2025-03-05 19:28] LABS: PLATELET COUNT, AUTOMATED 571 10^3/uL (150-450)
[2025-03-05 19:29] LABS: KETONE, URINE AUTO RFX NEGATIVE (NEGATIVE); LEUKOCYTE ESTERASE UR AUTO RFX NEGATIVE (NEGATIVE); MUCUS, URINE RFX SMALL (NEGATIVE); NITRITE, URINE AUTO RFX NEGATIVE (NEGATIVE); RBC, URINE AUTO RFX 1 /HPF (0-3); SQUAM EPITHELIAL CELL UR AURFX 1 /HPF (0-6); WBC, URINE AUTO RFX 0 /HPF (0-3)
[2025-03-05 19:41] LABS: C REACTIVE PROTEIN QUANTITATIV < 0.50 MG/DL (<1.0)
[2025-03-05 19:45] LABS: HCG, SERUM QUALITATIVE NEGATIVE (NEGATIVE)
[2025-03-05 19:46] LABS: ATYPICAL LYMPH 3 % (0-5); BASOPHILS 2 % (0-1); EOSINOPHILS 1 % (0-3); LYMPHOCYTES 12 % (16-44); MONOCYTES 2 % (0-5); NEUTROPHILS 80 % (28-66)
[2025-03-05 19:48] LABS: PLATELET ESTIMATE INCREASED (NORMAL)
[2025-03-05] MEDS: ACETAMINOPHEN *IV* 1,000 MG in IV 1 EA IV ONE (20:12)
[2025-03-05] MEDS: NS (Normal Saline) 0.9% 1,000 ML IV ONE (20:12)
[2025-03-05] MEDS: dexAMETHasone 4 MG/ML 1 ML VIAL PO ONE (20:12)
[2025-03-05] MEDS ORDERED: ACET-897 PO (22:53)
[2025-03-05 23:15] VITALS: BP 124/64; TEMP 97.2; O2SAT 96
== END 2025-03-05 23:20 | disposition home or self-care (01) ==
LOC: M ED 18:31
DX: R07.0 Pain in throat (principal); B34.9 Viral infection, unspecified; Z79.899 Other long term (current) drug therapy; Z88.1 Allergy status to other antibiotic agents
CPT/HCPCS: 36415; 71045; 80047; 80053; 81001; 83605; 84703; 85025; 85652; 86140; 87040; 87070; 87486; 87581; 87633; 87798; 87880; 96365; 96366; 96368; 99284; J0134; J1100

== ENCOUNTER → 2025-03-05 | Outpatient (CLI) | payer OTHER ==
[2025-03-05 15:50] LABS: PLATELET COUNT, AUTOMATED 528 10^3/uL (150-450)
[2025-03-05 16:24] LABS: ALT/SGPT 17 U/L (7.0-40); AST/SGOT 17 U/L (<34); CALCIUM LEVEL 9.4 MG/DL (8.5-10.1); CARBON DIOXIDE LEVEL 26 MMOL/L (20-31); CHLORIDE LEVEL 107 MMOL/L (98-107); CREATININE FOR GFR 0.81 MG/DL (0.55-1.30); GLOMERULAR FILTRATION RATE > 90.0 (>60); POTASSIUM SERUM 4.1 MMOL/L (3.5-5.1); SODIUM LEVEL 144 MMOL/L (136-145)
[2025-03-05 17:53] LABS: ATYPICAL LYMPH 2 % (0-5); LYMPHOCYTES 12 % (16-44); MONOCYTES 6 % (0-5); NEUTROPHILS 80 % (28-66); PLATELET ESTIMATE INCREASED (NORMAL)
== END ==
LOC: M LAB 15:23
PROVIDERS: ATTEND Nurse Practitioner Family
DX: J31.2 Chronic pharyngitis (principal)

== ENCOUNTER → 2025-03-11 | Outpatient (REF) | payer OTHER ==
[2025-03-11 16:58] LABS: BASO # 0.1 10^3/uL (0.0-0.2); BASO % 1.1 % (0.0-1.0); EOS # 0.2 10^3/uL (0.0-0.5); EOS % 1.5 % (0.0-3.0); LYMPH # 3.6 10^3/uL (1.5-5.0); LYMPH % 32.0 % (24.0-44.0); MONO # 1.2 10^3/uL (0.0-0.8); MONO % 10.2 % (2.0-8.0); NEUTROPHILS # 6.3 10^3/uL (1.5-8.5); NEUTROPHILS % 54.9 % (36.0-66.0); PLATELET COUNT, AUTOMATED 553 10^3/uL (150-450)
== END ==
LOC: M LAB REF 16:27
PROVIDERS: ATTEND Internal Medicine Infectious Disease
DX: R50.9 Fever, unspecified (principal)

== ENCOUNTER 2025-03-21 13:02 | Observation (INO) | payer OTHER ==
[~2025-03-21] VITALS: Ht 175.3 cm; Wt 104.2 kg
[2025-03-21 13:58] LABS: PLATELET COUNT, AUTOMATED 495 10^3/uL (150-450)
[2025-03-21 13:59] LABS: KETONE, URINE AUTO RFX NEGATIVE (NEGATIVE); LEUKOCYTE ESTERASE UR AUTO RFX NEGATIVE (NEGATIVE); MUCUS, URINE RFX SMALL (NEGATIVE); NITRITE, URINE AUTO RFX NEGATIVE (NEGATIVE); RBC, URINE AUTO RFX 1 /HPF (0-3); SQUAM EPITHELIAL CELL UR AURFX 0 /HPF (0-6); WBC, URINE AUTO RFX 0 /HPF (0-3)
[2025-03-21 14:27] LABS: ALT/SGPT 43 U/L (7.0-40); AST/SGOT 47 U/L (<34); ATYPICAL LYMPH 3 % (0-5); CALCIUM LEVEL 9.0 MG/DL (8.5-10.1); CARBON DIOXIDE LEVEL 22 MMOL/L (20-31); CHLORIDE LEVEL 107 MMOL/L (98-107); CREATININE FOR GFR 0.67 MG/DL (0.55-1.30); EOSINOPHILS 1 % (0-3); GLOMERULAR FILTRATION RATE > 90.0 (>60); LYMPHOCYTES 4 % (16-44); MONOCYTES 7 % (0-5); NEUTROPHILS 85 % (28-66); POTASSIUM SERUM 4.2 MMOL/L (3.5-5.1); SODIUM LEVEL 140 MMOL/L (136-145)
[2025-03-21 14:30] LABS: PLATELET ESTIMATE INCREASED (NORMAL)
[2025-03-21] MEDS: NS (Normal Saline) 0.9% 1,000 ML IV ONE (14:44)
[2025-03-21] MEDS: MORPHINE 4 MG/ML 1 ML VIAL IV ONE (14:45)
[2025-03-21] MEDS ORDERED: ISOVUE-370 76% 100 ML VIAL As Ordered ONE (15:08)
[2025-03-21] MEDS: KETOROLAC 30 MG/ML 1 ML VIAL IV ONE (17:11)
[2025-03-21] MEDS: cefTRIAXone SOD 1 GM in DEXTROSE 5% (D5W) ADV/MINI-BAG 50 ML IV ONE (19:23)
[2025-03-21] MEDS ORDERED: RISA150P SQ (19:41)
[2025-03-21] MEDS ORDERED: TRET0.046 TOP (19:41)
[2025-03-21] MEDS ORDERED: ACZO5GEL2 TOP (19:41)
[2025-03-21] MEDS ORDERED: HOME MED LIST COMPLETE! XX SCH (19:45)
[2025-03-21] MEDS ORDERED: MAALOX 30 ML SUSP *UDC PO PRN (19:45)
[2025-03-21] MEDS ORDERED: MOM 30 ML SUSPENSION UDC PO PRN (19:45)
[2025-03-21 20:20] LABS: C REACTIVE PROTEIN QUANTITATIV 0.86 MG/DL (<1.0)
[2025-03-21] MEDS: NS (Normal Saline) 0.9% 1,000 ML IV SCH (22:06)
[2025-03-21] MEDS: KETOROLAC 30 MG/ML 1 ML VIAL IV PRN (22:07)
[2025-03-21] MEDS: ONDANSETRON 4MG/2ML VIAL IV PRN (22:07)
[2025-03-21 22:52] VITALS: BP 101/55; TEMP 100.6; O2SAT 95
[2025-03-21 23:02] VITALS: TEMP 100.8
[2025-03-21] MEDS: MORPHINE 4 MG/ML 1 ML VIAL IV PRN (23:24)
[2025-03-21] MEDS: PIPERACILLIN/TAZOBACTAM SOD 3.375 GM in DEXTROSE 5% (D5W) ADV/MINI-BAG 50 ML IV SCH (23:57)
[2025-03-22] VITALS: TEMP 99
[2025-03-22] MEDS: HYDROMORPHONE HCL 0.5 MG/0.5 ML SYRINGE IV ONE (02:02)
[2025-03-22 05:54] VITALS: BP 107/56; TEMP 98.1; O2SAT 95
[2025-03-22 06:36] LABS: PLATELET COUNT, AUTOMATED 407 10^3/uL (150-450)
[2025-03-22 07:11] LABS: ALT/SGPT 34 U/L (7.0-40); AST/SGOT 31 U/L (<34); CALCIUM LEVEL 7.8 MG/DL (8.5-10.1); CARBON DIOXIDE LEVEL 26 MMOL/L (20-31); CHLORIDE LEVEL 107 MMOL/L (98-107); CREATININE FOR GFR 0.73 MG/DL (0.55-1.30); GLOMERULAR FILTRATION RATE > 90.0 (>60); MAGNESIUM LEVEL 1.8 MG/DL (1.8-2.4); POTASSIUM SERUM 3.8 MMOL/L (3.5-5.1); SODIUM LEVEL 140 MMOL/L (136-145)
[2025-03-22] MEDS: ENOXAPARIN 40 MG/0.4 ML SYRINGE (J1650 PER 10MG) SC SCH (09:00)
[2025-03-22] MEDS ORDERED: MORPHINE 4 MG/ML 1 ML VIAL IV PRN (10:50)
[2025-03-22] MEDS: SENNOSIDES/DOCUSATE SODIUM 8.6 MG/50MG TAB PO SCH (11:48)
[2025-03-22 12:00] VITALS: BP 119/65; TEMP 98.6; O2SAT 97
[2025-03-22 13:50] LABS: URINE PREG TEST NEGATIVE (NEGATIVE)
[2025-03-22] MEDS ORDERED: SENN-122 PO (15:24)
[2025-03-22] MEDS ORDERED: ONDA-83 PO (15:24)
[2025-03-22] MEDS ORDERED: MIRA3350 PO (15:24)
== END 2025-03-22 15:55 | disposition home or self-care (01) ==
LOC: M ED 13:02 → M ED INP 13:03 → M MSPAV 22:42
PROVIDERS: ADMIT Student in an Organized Health Care Education/Training Program; ATTEND Internal Medicine
DX: R11.2 Nausea with vomiting, unspecified (principal); K59.00 Constipation, unspecified; D72.829 Elevated white blood cell count, unspecified; D58.0 Hereditary spherocytosis; L40.8 Other psoriasis; M54.50 Low back pain, unspecified; Z79.899 Other long term (current) drug therapy
CPT/HCPCS: 36415; 74177; 80048; 80053; 80076; 81001; 83605; 83690; 83735; 84145; 84703; 85025; 85027; 85652; 86140; 87040; 87507; 93041; 96361; 96365; 96366; 96375; 96376; 99285; J1171; J1885; J2405; J2543; J2550; J2765; Q9967

== ENCOUNTER → 2025-03-26 | Outpatient (CLI) | payer OTHER ==
[~2025-03-26] MED LIST changes: +ACZO5GEL2 TOP; +MIRA3350 PO; +ONDA-83 PO; +RISA150P SQ; +SENN-122 PO; +TRET0.046 TOP
== END ==
LOC: M WHC 11:06
PROVIDERS: ATTEND Obstetrics & Gynecology Obstetrics
DX: N83.201 Unspecified ovarian cyst, right side (principal); N88.8 Other specified noninflammatory disorders of cervix uteri

== ENCOUNTER → 2025-03-27 | Outpatient (CLI) | payer OTHER | LOC: M PLAIMG 08:23 | PROVIDERS: ATTEND Otolaryngology | DX: J35.8 Other chronic diseases of tonsils and adenoids (principal) ==